=== PATIENT | male | born 1955 | race Caucasian/White ===

== ENCOUNTER 2018-02-06 11:02 | Inpatient (IN) | payer OTHER ==
[~2018-02-06] VITALS: Ht 190.5 cm; Wt 123.2 kg
[2018-02-06 11:30] LABS: ABSOLUTE BASOPHIL COUNT 0 /CUMM (0.0-0.2); ABSOLUTE EOSINOPHIL COUNT 0.6 /CUMM (0.0-0.7); ABSOLUTE GRANULOCYTE CT 7.8 /CUMM (1.4-6.5); ABSOLUTE LYMPH COUNT 1.9 /CUMM (1.2-3.4); ABSOLUTE MONOCYTE COUNT 0.8 /CUMM (0.10-0.60); BASOPHIL % 0.4 % (0.0-2.0); EOSINOPHIL % 5.6 % (0-5); GRANULOCYTE % 70.3 % (42.2-75.2); HEMATOCRIT 31.5 % (42-52); MEAN CORPUSCULAR HGB 28.4 PG (27.0-31.0); MEAN CORPUSCULAR HGB CONC 34.1 G/DL (33.0-37.0); MEAN CORPUSCULAR VOLUME 83.4 FL (80.0-94.0); MEAN PLATELET VOLUME 6.9 FL (7.4-10.4); PLATELET COUNT 599 /CUMM (130-400); RBC DISTRIBUTION WIDTH 14.1 % (11.5-14.5); RED BLOOD CELL CT 3.78 /CUMM (4.70-6.10); WHITE BLOOD CELL COUNT 11.1 /CUMM (4.8-10.8)
--- NOTE | 2018-02-06 16:18 | ED DYSPNEA/ASTHMA COMPLAINT ---
History of Present Illness General Chief Complaint: Dyspnea (COPD, CHF, Other) Stated Complaint: ABNORMAL XRAY Source: patient Exam Limitations: no limitations Vital Signs & Intake/Output Vital Signs & Intake/Output Vital Signs Date Time Temp Pulse Resp B/P B/P Pulse O2 O2 Flow FiO2 Mean Ox Delivery Rate 02/06 2043 98.7 88 24 132/65 95 Nasal 2.0L Cannula 02/06 1659 95 Nasal 2.0L Cannula 02/06 1551 99.4 104 20 167/81 95 Room Air 02/06 1129 99.9 86 20 171/79 94 Room Air Allergies Coded Allergies: No Known Allergies (02/06/18) Triage Note: 62 YEAR OLD MALE SENT TO ER BY PMD FOR ABNORMAL CXR, STATES THAT HE WAS TOLD THAT THERE IS A MEASS. PT HAS HAD A COUGH FOR THE PAST 2 WEEKS PRODUCTIVE OF SPUTUM TINGED WITH BROWN/RED BLOOD. COMPLAINS OF BILATERAL RIB PAIN FROM COUGHING Triage Nurses Notes Reviewed? yes Onset: Abrupt Duration: week(s): (3), constant, continues in ED, getting worse Timing: single episode today Severity: moderate, severe Activities at Onset: none Prior Episodes/Possible Cause: occasional episodes Modifying Factors: Worsens With: movement. Associated Symptoms: cough, chest pain, wheezing HPI: 62-year-old male past medical history of hypertension, hyperlipidemia, sleep apnea presents for evaluation of shortness of breath cough and chest pain. Patient states that symptoms have been ongoing for the past 3 weeks and getting worse. He is a former smoker and has a history of recurrent bronchitis. He states that the cough was initially productive of clear sputum but is now coughing up blood-streaked and purple sputum. He denies fever but does report sweats at night. No abdominal pain or weight loss. He does report pain in his bilateral ribs that is worse with coughing. No nausea vomiting dizziness or lightheadedness. He went to his primary care doctor yesterday and had a chest x -ray which showed a possible mass. (Herb Francois) Reconcile Medications Acetaminophen 500 MG TABLET 2 TAB PO Q6H PAIN (Reported) Amlodipine Besylate 5 MG TABLET 1 TAB PO DAILY BP (Reported) Amoxicillin/Clavulanate Potass (Amox-Clav 875-125 MG Tablet) 875 MG-125 MG TABLET 1 TAB PO BID abx (Reported) Aspirin (Ecotrin*) 81 MG TABLET.DR 1 TAB PO DAILY HEART/BLOOD (Reported) Atorvastatin Calcium 10 MG TABLET 1 TAB PO DAILY CHOLESTEROL (Reported) Azithromycin 250 MG TABLET 1 DP PO AD ABX (Reported) 2 the first day followed by 1 for days 2-5 Codeine Phosphate/Guaifenesi (Cheratussin AC Syrup) 10 MG-100 MG/5 ML LIQUID 10 ML PO Q4H cough (Reported) Ibuprofen 600 MG TABLET 1 TAB PO Q6H PAIN/INFLAMMATION (Reported) with food Loratadine (Claritin) 10 MG CAPSULE 1 CAP PO DAILY ALLERGIES (Reported) Multiple Vitamin (Multivitamins) 1 EACH TABLET 1 TAB PO DAILY SUPPLEMENT ( Reported) Ranitidine HCl (Acid Song Lyricist) 150 MG TABLET 1 TAB PO DAILY GI (Reported) Valsartan (Diovan) 160 MG TABLET 1 TAB PO DAILY BP (Reported) (Chong DIOR,Sarmad De Anda) Past History Travel History Traveled to [place] past 21 day No Medical History Any Pertinent Medical History? see below for history Neurological: NONE EENT: NONE Cardiovascular: hypertension, hyperlipidemia Gastrointestinal: NONE Hepatic: NONE Renal: NONE Psychiatric: NONE Blood Disorders: NONE Cancer(s): NONE Surgical History Surgical History: unobtainable Psychosocial History What is your primary language Grenadian Tobacco Use: Never used ETOH Use: denies use Illicit Drug Use: denies illicit drug use Family History Hx Contributory? No (Herb Francois) Review of Systems Review of Systems Constitutional: Reports: diaphoresis. EENTM: Reports: no symptoms. Respiratory: Reports: see HPI, cough, hemoptysis, short of breath, sputum production, wheezing. Cardiovascular: Reports: see HPI, chest pain. GI: Reports: no symptoms. Genitourinary: Reports: no symptoms. Musculoskeletal: Reports: no symptoms. Skin: Reports: no symptoms. Neurological/Psychological: Reports: no symptoms. Hematologic/Endocrine: Reports: no symptoms. Immunologic/Allergic: Reports: no symptoms. All Other Systems: Reviewed and Negative (Herb Francois) Physical Exam Physical Exam General Appearance: well developed/nourished, no apparent distress, alert, awake Head: atraumatic, normal appearance Eyes: Bilateral: normal appearance, PERRL, EOMI. Ears, Nose, Throat: normal pharynx, normal ENT inspection, hearing grossly normal Neck: normal inspection, supple, full range of motion Respiratory: CHEST WALL TENDERNESS TO PALPATION OVER THE STERNUM LEFT AND RIGHT CHEST. nO BRUISING SWELLING OR ABRASIONS Cardiovascular: regular rate/rhythm, normal peripheral pulses Peripheral Pulses: 2+ radial (R), 2+ radial (L) Gastrointestinal: soft, non-tender Extremities: normal range of motion, MILD BILATERAL LOWER EXTREMITY EDEMA Neurologic/Psych: no motor/sensory deficits, awake, alert, oriented x 3 Skin: intact, normal color, warm/dry Lymphatic: no anterior cervical gabby Core Measures ACS in differential dx? No CVA/TIA Diagnosis No Sepsis Present: No Sepsis Focused Exam Completed? No (Arash DELEON,Herb) Progress Differential Diagnosis: asthma, AMI, bronchitis, costochondritis, CHF, COPD, musculoskeletal pain, pulmonary embolism, pneumonia, pneumothorax, unstable angina, LUNG CANCER Plan of Care: Orders Procedure Date/time Status Nothing by Mouth 02/07 B Active LACTIC ACID 02/06 2219 Active Patient Data 02/06 2029 Active Saline Lock 02/06 2025 Active Misc Message 02/06 2025 Active ED Holding Orders 02/06 2025 Active Admit to inpatient 02/06 2025 Active Vital Signs 02/06 2025 Active Code Status 02/06 2025 Active LACTIC ACID 02/06 1919 Complete Add-on Test (ER Only) 02/06 1846 Active BLOOD CULTURE 02/06 184 Active Intake & Output 02/06 1613 Active PARTIAL THROMBOPLASTIN TIME 02/06 1118 Complete PROTHROMBIN TIME 02/06 1118 Complete TROPONIN LEVEL 02/06 1106 Complete D-DIMER 02/06 1106 Complete COMPREHENSIVE METABOLIC PANEL 02/06 1106 Complete CBC WITHOUT DIFFERENTIAL 02/06 1106 Complete EKG 02/06 1104 Active Current Medications Sig/Jonel Start time Last Medication Dose Stop Time Status Admin Acetaminophen 1,000 MG ONCE ONE 02/06 194 CAN (Ofirmev) 02/06 1959 N/A 1 UNIT (No Carrier) Laboratory Tests 02/06/18 1923: Lactic Acid 0.7 02/06/18 1118: Anion Gap 12, Estimated GFR > 60, BUN/Creatinine Ratio 21.4, Glucose 108 H, Calcium 8.6, Total Bilirubin 0.5, AST 158 H, ALT 177 H, Alkaline Phosphatase 301 H, Troponin I < 0.01, Total Protein 6.5, Albumin 3.2 L, Globulin 3.3, Albumin/Globulin Ratio 1.0 L, PT 15.4 H, INR 1.41 H, APTT 35, D-Dimer High Sensitivty 3114 H, CBC w Diff NO MAN DIFF REQ, RBC 3.78 L, MCV 83.4, MCH 28.4, MCHC 34.1, RDW 14.1, MPV 6.9 L, Gran % 70.3, Lymphocytes % 16.9 L, Monocytes % 6.8, Eosinophils % 5.6 H, Basophils % 0.4, Absolute Granulocytes 7.8 H, Absolute Lymphocytes 1.9, Absolute Monocytes 0.8 H, Absolute Eosinophils 0.6, Absolute Basophils 0 Microbiology 02/06 1923 BLOOD: Blood Culture - RECD 02/06 1846 BLOOD: Blood Culture - ORD Patient seen and evaluated. He is here with cough congestion shortness of breath and rib pain. Symptoms have been getting worse over the past 3 weeks. He also reports blood streaked sputum. He is a former smoker. He's never been diagnosed with COPD. An outpatient x-ray that suggested infiltrate versus mass. He arrives with oxygen saturation of 90-91 on room air. He was placed on 2 L nasal cannula. He has rhonchi bilaterally DuoNeb ordered. Labs EKG CTA ordered. D-dimer is significantly elevated. Suspect patient may have a malignancy. CTA of the chest was a limited study. Unable to definitively rule out PE. Ultrasound bilateral lower extremities was negative for DVT. Spoke with Dr. Mckeon who does not feel the patient needs to be heparinized at this time. He recommends admission for IV antibiotics malignancy workup. IV Solu-Medrol IV ceftriaxone ordered. Case discussed with Dr. Schwarz he agrees. Diagnostic Imaging: Viewed by Me: CT Scan. Discussed w/RAD: CT Scan. Radiology Impression: PATIENT: SANDRA POLANCO PRESENT AGE: 62 PATIENT ACCOUNT NO: [id number] : 55 LOCATION: [facility] ORDERING PHYSICIAN: Gage DELEON SERVICE DATE: 02/06/18 EXAM TYPE: CAT - CTA CHEST-PULMONARY EMBOLISM EXAMINATION: CT ANGIOGRAM OF THE CHEST WITH AND WITHOUT CONTRAST (CT PULMONARY ANGIOGRAM FOR PE) CLINICAL INFORMATION: Reason for Study:
Presumptive Dx: SOB, COUGH, MASS ON CT, ELEVATED DIMER
Signs Symptoms: R/O MALIGNANCY AND PE
COMPARISON: None TECHNIQUE: Prior to contrast administration, noncontrast localization images were obtained. Subsequently, multidetector volumetric imaging was performed from the thoracic inlet to below the diaphragms following the administration of 80 mL Omnipaque 350 intravenous contrast. No contrast reaction reported. Sagittal, coronal, and MIP oblique sagittal reformatted images were obtained on the CT workstation, uploaded to PACS, and reviewed. Total exam dose-length product 537 mGy-cm. FINDINGS: QUALITY OF STUDY/CONTRAST BOLUS: Limited PULMONARY ARTERIES: No gross central pulmonary emboli. Segmental and subsegmental pulmonary arteries difficult to actually exclude although no definite embolism is seen. THORACIC AORTA: No aneurysm or dissection. LUNG: Extensive peripherally based consolidations at both bases laterally. There is volume loss within the right lower lobe and middle lobe elevation right hemidiaphragm. Small amount of subpulmonic pleural fluid bilaterally. No discrete nodules or masses. PLEURA: As above MEDIASTINUM: Mildly enlarged mediastinal lymph nodes throughout the mediastinum. Largest subcarinal location measuring up to 18 mm. Mild bilateral hilar lymphadenopathy. No evidence of septal bowing or right heart strain. CHEST WALL/AXILLA: No axillary or internal mammary lymphadenopathy. OSSEOUS STRUCTURES : No acute or suspicious osseous abnormality. UPPER ABDOMEN: Changes of diffuse hepatic steatosis and hepatomegaly partially imaged. No reflux of contrast into the hepatic veins to suggest elevated right heart pressures. IMPRESSION: 1. Very limited exam. No gross central pulmonary emboli. Distal emboli not excluded. 2. Relatively peripheral pleural-based parenchymal abnormality is of uncertain significance. Diagnostic considerations include infectious inflammatory conditions. Pulmonary infarcts not excluded as well as tumor including entities such as lymphoma. There is significant mediastinal lymphadenopathy which appears pathologic. If further imaging is desired, recommend PET/CT. Pulmonary medicine consultation recommended. No previous CT scans. VTE: indeterminate DICTATED BY: Chad Roche MD DATE/TIME DICTATED:02/06/181752 SECRETARY OFFICE CLERK:ZENOBIA DATE /TIME TRANSCRIBED:02/06/181752 CONFIDENTIAL, DO NOT COPY WITHOUT APPROPRIATE AUTHORIZATION. <Electronically signed in Other Vendor System> SIGNED BY: Chad Roche MD 02/06/18 0509, PATIENT: SANDRA POLANCO PRESENT AGE: 62 PATIENT ACCOUNT NO: [id number] : 55 LOCATION: [facility] ORDERING PHYSICIAN: Herb DELEON SERVICE DATE: 02/06/18 EXAM TYPE: US - US-EXT BILAT VENOUS DOPPLER EXAMINATION: US TRIPLEX OF LOWER EXTREMITIES, BILATERAL CLINICAL INFORMATION: Swelling COMPARISON: None TECHNIQUE: Color-flow triplex imaging with spectral analysis and compression Doppler were performed on the lower extremities. FINDINGS: Respiratory variation, normal compression and augmented flow are noted throughout the lower extremities. The visualized common femoral vein, superficial femoral vein, profunda femoral vein, popliteal vein and midcalf peroneal and posterior tibial venous segments show no evidence of deep venous thrombosis. There is no Vasquez's cyst. IMPRESSION: No evidence of deep venous thrombosis involving the bilateral lower extremities. DICTATED BY: Chad Roche MD DATE/TIME DICTATED:02/06/181913 SECRETARY OFFICE CLERK:ZENOBIA DATE /TIME TRANSCRIBED:02/06/181913 CONFIDENTIAL, DO NOT COPY WITHOUT APPROPRIATE AUTHORIZATION. <Electronically signed in Other Vendor System> SIGNED BY: Chad Roche MD 02/06/181917 Initial ED EKG: normal sinus rhythm, borderline T-wave flattening in leads 3 and aVF compared to previous (Herb Franocis) Departure Departure Disposition: STILL A PATIENT Condition: Stable Referrals: Arben DIOR,Kiran Angeles (PCP/Family) Departure Forms: Customer Survey General Discharge Information Admission Note Spoke With: Zeeshan Kang MD Documentation of Exam: Documentation of any treatments & extenuating circumstances including Concerns Regarding Discharge (functional status, medication knowledge or non-compliance, living conditions, etc.) that warrant an admission rather than observation: [ Serial labs, pulmonology consult, IV antibiotics, IV fluids, pulmonology consult , IV steroids, DuoNeb, malignancy workup] (Herb Francois) Departure Clinical Impression Primary Impression: Hemoptysis Secondary Impressions: Dyspnea, Lymphadenopathy PA/CUSTOMER ADVISOR Co-Sign Statement Statement: ED Attending supervision documentation- [X] I saw and evaluated the patient. I have also reviewed all the pertinent lab results and diagnostic results. I agree with the findings and the plan of care as documented in the PA's/CUSTOMER ADVISOR's documentation. 02/06/18, 20:15... Pt comfortable but with rhonchi on exam, hypoxic, requiring 02 .... ct scan concerning for malignancy, possibly PE.... discussed with pulm who suggests defering heparin, pursuing malignancy... also give solumedrol/abx for superimposed infection. [] I have reviewed the ED Record and agree with the PA's/CUSTOMER ADVISOR's documentation. [] Additions or exceptions (if any) to the PAs/CUSTOMER ADVISOR's note and plan are summarized below: [] (Chong DIOR,Sarmad De Anda) Critical Care Note Critical Care Note Critical Care Time: non-applicable (Arash DELEON,Herb)
--- NOTE | 2018-02-06 18:28 | CT SCAN REPORT ---
EXAMINATION: CT ANGIOGRAM OF THE CHEST WITH AND WITHOUT CONTRAST (CT PULMONARY ANGIOGRAM FOR PE) CLINICAL INFORMATION: Reason for Study:
Presumptive Dx: SOB, COUGH, MASS ON CT, ELEVATED DIMER
Signs Symptoms: R/O MALIGNANCY AND PE
COMPARISON: None TECHNIQUE: Prior to contrast administration, noncontrast localization images were obtained. Subsequently, multidetector volumetric imaging was performed from the thoracic inlet to below the diaphragms following the administration of 80 mL Omnipaque 350 intravenous contrast. No contrast reaction reported. Sagittal, coronal, and MIP oblique sagittal reformatted images were obtained on the CT workstation, uploaded to PACS, and reviewed. Total exam dose-length product 537 mGy-cm. FINDINGS: QUALITY OF STUDY/CONTRAST BOLUS: Limited PULMONARY ARTERIES: No gross central pulmonary emboli. Segmental and subsegmental pulmonary arteries difficult to actually exclude although no definite embolism is seen. THORACIC AORTA: No aneurysm or dissection. LUNG: Extensive peripherally based consolidations at both bases laterally. There is volume loss within the right lower lobe and middle lobe elevation right hemidiaphragm. Small amount of subpulmonic pleural fluid bilaterally. No discrete nodules or masses. PLEURA: As above MEDIASTINUM: Mildly enlarged mediastinal lymph nodes throughout the mediastinum. Largest subcarinal location measuring up to 18 mm. Mild bilateral hilar lymphadenopathy. No evidence of septal bowing or right heart strain. CHEST WALL/AXILLA: No axillary or internal mammary lymphadenopathy. OSSEOUS STRUCTURES: No acute or suspicious osseous abnormality. UPPER ABDOMEN: Changes of diffuse hepatic steatosis and hepatomegaly partially imaged. No reflux of contrast into the hepatic veins to suggest elevated right heart pressures. IMPRESSION: 1. Very limited exam. No gross central pulmonary emboli. Distal emboli not excluded. 2. Relatively peripheral pleural-based parenchymal abnormality is of uncertain significance. Diagnostic considerations include infectious inflammatory conditions. Pulmonary infarcts not excluded as well as tumor including entities such as lymphoma. There is significant mediastinal lymphadenopathy which appears pathologic. If further imaging is desired, recommend PET/CT. Pulmonary medicine consultation recommended. No previous CT scans. VTE: indeterminate
[2018-02-06 19:01] LABS: PT 15.4 SEC (9.4-12.5); PTT 35 SEC (25-37)
--- NOTE | 2018-02-06 19:18 | ULTRASOUND REPORT ---
EXAMINATION: US TRIPLEX OF LOWER EXTREMITIES, BILATERAL CLINICAL INFORMATION: Swelling COMPARISON: None TECHNIQUE: Color-flow triplex imaging with spectral analysis and compression Doppler were performed on the lower extremities. FINDINGS: Respiratory variation, normal compression and augmented flow are noted throughout the lower extremities. The visualized common femoral vein, superficial femoral vein, profunda femoral vein, popliteal vein and midcalf peroneal and posterior tibial venous segments show no evidence of deep venous thrombosis. There is no Vasquez's cyst. IMPRESSION: No evidence of deep venous thrombosis involving the bilateral lower extremities.
[2018-02-06] MEDS ORDERED: ATORVASTATIN CA10 M1 PO (20:33)
[2018-02-06] MEDS ORDERED: CLARITIN10 M3 PO (20:34)
[2018-02-06] MEDS ORDERED: DIOVAN160 MG PO (20:34)
[2018-02-06] MEDS ORDERED: AMLODIPINE BESYL5 M1 PO (20:34)
[2018-02-06] MEDS ORDERED: MULTIVITAMINS1 EAC9 PO (20:34)
[2018-02-06] MEDS ORDERED: ASPIRIN EC81 M1 PO (20:35)
[2018-02-06] MEDS ORDERED: IBUPROFEN600 M1 PO (20:35)
[2018-02-06] MEDS ORDERED: ACID REDUCER150 MG PO (20:35)
[2018-02-06] MEDS ORDERED: CHERATUSSIN AC118 M1 PO (20:36)
[2018-02-06] MEDS ORDERED: ACETAMINOPHEN500 M4 PO (20:36)
[2018-02-06] MEDS ORDERED: AZITHROMYCIN250 M1 PO (20:36)
[2018-02-06] MEDS ORDERED: AMOX-CLAV 875-1 EACH PO (20:37)
--- NOTE | 2018-02-06 21:01 | Cons- Pulmonary ---
General Information and HPI Consulting Request Date of Consult: 02/06/18 Requested By: ed Exam Limitations: no limitations History of Present Illness: 62-year-old male past medical history of hypertension, hyperlipidemia, sleep apnea presents for evaluation of shortness of breath cough and chest pain. Patient states that symptoms have been ongoing for the past 3 weeks and getting worse. He is a former smoker and has a history of recurrent bronchitis. He states that the cough was initially productive of clear sputum but is now coughing up blood-streaked and purple sputum. He denies fever but does report sweats at night. No abdominal pain or weight loss. He does report pain in his bilateral ribs that is worse with coughing. No nausea vomiting dizziness or lightheadedness. He went to his primary care doctor yesterday and had a chest x -ray which showed a possible mass. He does say that he smoked about 10-15 years total quit more than 25 years ago. He is not too compliant with his CPAP.. He has dogs and cats and a bird at home. He has had loss of appetite in the recent past, dry cough with significant coughing he has seen some blood tinged sputum. No recent travel, no rash, he does have appetite issues, mild dyspepsia in the past, he has history of tubulovillous adenoma with recent colonoscopy last year did not reveal any premalignant polyps. His had an EGD as well. No other symptoms. Review of symptoms otherwise unremarkable. Allergies/Medications Allergies: Coded Allergies: No Known Allergies (02/06/18) Home Med List: Acetaminophen 500 MG TABLET 2 TAB PO Q6H PAIN (Reported) Amlodipine Besylate 5 MG TABLET 1 TAB PO DAILY BP (Reported) Amoxicillin/Clavulanate Potass (Amox-Clav 875-125 MG Tablet) 875 MG-125 MG TABLET 1 TAB PO BID abx (Reported) Aspirin (Ecotrin*) 81 MG TABLET.DR 1 TAB PO DAILY HEART/BLOOD (Reported) Atorvastatin Calcium 10 MG TABLET 1 TAB PO DAILY CHOLESTEROL (Reported) Azithromycin 250 MG TABLET 1 DP PO AD ABX (Reported) 2 the first day followed by 1 for days 2-5 Codeine Phosphate/Guaifenesi (Cheratussin AC Syrup) 10 MG-100 MG/5 ML LIQUID 10 ML PO Q4H cough (Reported) Ibuprofen 600 MG TABLET 1 TAB PO Q6H PAIN/INFLAMMATION (Reported) with food Loratadine (Claritin) 10 MG CAPSULE 1 CAP PO DAILY ALLERGIES (Reported) Multiple Vitamin (Multivitamins) 1 EACH TABLET 1 TAB PO DAILY SUPPLEMENT ( Reported) Ranitidine HCl (Acid Forecast Analyst) 150 MG TABLET 1 TAB PO DAILY GI (Reported) Valsartan (Diovan) 160 MG TABLET 1 TAB PO DAILY BP (Reported) Review of Systems Review of Systems Constitutional: Reports: see HPI. Comments Reports: diaphoresis. EENTM: Reports: no symptoms. Respiratory: Reports: see HPI, cough, hemoptysis, short of breath, sputum production, wheezing. Cardiovascular: Reports: see HPI, chest pain. GI: Reports: no symptoms. Genitourinary: Reports: no symptoms. Musculoskeletal: Reports: no symptoms. Skin: Reports: no symptoms. Neurological/Psychological: Reports: no symptoms. Hematologic/Endocrine: Reports: no symptoms. Immunologic/Allergic: Reports: no symptoms. All Other Systems: Reviewed and Negative Past History Travel History Traveled to [place] past 21 day No Medical History Neurological: NONE EENT: NONE Cardiovascular: hypertension, hyperlipidemia Gastrointestinal: NONE Hepatic: NONE Renal: NONE Psychiatric: NONE Blood Disorders: NONE Cancer(s): NONE Surgical History Surgical History: unobtainable Psychosocial History ETOH Use: denies use Illicit Drug Use: denies illicit drug use Exam & Diagnostic Data Last 24 Hrs of Vital Signs/I&O Vital Signs Date Time Temp Pulse Resp B/P B/P Pulse O2 O2 Flow FiO2 Mean Ox Delivery Rate 02/06 2043 98.7 88 24 132/65 95 Nasal 2.0L Cannula 02/06 1659 95 Nasal 2.0L Cannula 02/06 1551 99.4 104 20 167/81 95 Room Air 02/06 1129 99.9 86 20 171/79 94 Room Air Intake & Output 02/06 1600 02/06 0800 02/06 0000 Intake Total Output Total Balance Patient 278 lb Weight Last 48 Hrs of Labs/Coyd: Laboratory Tests 02/06/18 1923: Lactic Acid 0.7 02/06/18 1118: Anion Gap 12, Estimated GFR > 60, BUN/Creatinine Ratio 21.4, Glucose 108 H, Calcium 8.6, Total Bilirubin 0.5, AST 158 H, ALT 177 H, Alkaline Phosphatase 301 H, Troponin I < 0.01, Total Protein 6.5, Albumin 3.2 L, Globulin 3.3, Albumin/Globulin Ratio 1.0 L, PT 15.4 H, INR 1.41 H, APTT 35, D-Dimer High Sensitivty 3114 H, CBC w Diff NO MAN DIFF REQ, RBC 3.78 L, MCV 83.4, MCH 28.4, MCHC 34.1, RDW 14.1, MPV 6.9 L, Gran % 70.3, Lymphocytes % 16.9 L, Monocytes % 6.8, Eosinophils % 5.6 H, Basophils % 0.4, Absolute Granulocytes 7.8 H, Absolute Lymphocytes 1.9, Absolute Monocytes 0.8 H, Absolute Eosinophils 0.6, Absolute Basophils 0 Assessment/Plan Impression/Plan: General Appearance: well developed/nourished, no apparent distress, alert, awake Head: atraumatic, normal appearance Eyes: Bilateral: normal appearance, PERRL, EOMI. Ears, Nose, Throat: normal pharynx, normal ENT inspection, hearing grossly normal Neck: normal inspection, supple, full range of motion Respiratory: CHEST WALL TENDERNESS TO PALPATION OVER THE STERNUM LEFT AND RIGHT CHEST. nO BRUISING SWELLING OR ABRASIONS Cardiovascular: regular rate/rhythm, normal peripheral pulses Peripheral Pulses: 2+ radial (R), 2+ radial (L) Gastrointestinal: soft, non-tender Extremities: normal range of motion, MILD BILATERAL LOWER EXTREMITY EDEMA Neurologic/Psych: no motor/sensory deficits, awake, alert, oriented x 3 Skin: intact, normal color, warm/dry Lymphatic: no anterior cervical gabby IMPRESSION: 1. Very limited exam. No gross central pulmonary emboli. Distal emboli not excluded. 2. Relatively peripheral pleural-based parenchymal abnormality is of uncertain significance. Diagnostic considerations include infectious inflammatory conditions. Pulmonary infarcts not excluded as well as tumor including entities such as lymphoma. There is significant mediastinal lymphadenopathy which appears pathologic. If further imaging is desired, recommend PET/CT. Pulmonary medicine consultation recommended. No previous CT scans. VTE: indeterminate DICTATED BY: Chad Roche MD DATE/TIME DICTATED:02/06/181752 No DVT in the lower extremity Doppler SIGNIFICANT DATA CT scan and others reviewed Blood work unremarkable albumin low his alkaline phosphatase is elevated to 301 AST ALT elevated bilirubin normal his blood work in September was unremarkable other than slightly elevated anion gap's last PSA was normal His white count is 11.1 with platelets of 599 with no significant left shift however he has 5.6% eosinophilia D-dimer is significantly elevated INR is 1.41 urine analysis pending IMPRESSION This is a gentleman with history of hypertension, obstructive sleep apnea not on CPAP regularly, hyperlipidemia, previous history of allergic rhinitis, 15-pack- year smoker quit more than 25 years ago has * Significant cough which is dry in the beginning now with slight blood-tinged sputum with excessive coughing with no significant fever bilateral pulmonary masslike opacity 7 infiltrates with volume loss with mild lymphadenopathy in the mediastinum with no significant large pulmonary embolism noted. Differential diagnoses include atypical pneumonia including psittacosis as he has birds versus metastatic malignancy versus organizing pneumonia. Full workup needs to be done. Patient has had history of tubulovillous adenoma in the past but no significant colonoscopy last year, normal PSA, no other risks for malignancy. * Mild eosinophilia dry cough peripheral infiltrates rule out atypical infection including psittacosis. No significant exposure to any endemic fungi in the recent past unlikely this is any other organism * Unlikely pulmonary embolism as he has no DVT and no large PE and no evidence suggestive of right heart strain * Altered LFTs, elevated alkaline phosphatase rule out any other pathology in the abdomen which needs workup with CT scan of the abdomen and pelvis with IV and by mouth contrast in the future once his creatinine is normal in the next 24 hours as he just received contrast. RECOMMENDATION Panculture Sputum culture Chlamydia psittacosis panel Start intravenous ceftriaxone, by mouth doxycycline Cough controlled by codeine cough syrup, ipratropium nebulizer therapy around the clock 3 times a day, start gabapentin 300 at bedtime if he can tolerate it Low-dose steroid inhaler Check IgE level Check urinary antigens We'll consider CT scan guided needle biopsy if he does not have a good response with doxycycline Check HIV Consult Acknowledgment - Thank you for your consult request.
--- NOTE | 2018-02-06 21:28 | History & Physical ---
Patrice DIOR,[facility] 02/06/18 2128: General Information and HPI MD Statement: I have seen and personally examined SANDRA NASCIMENTO and documented this H&P. The patient is a 62 year old M who presented with a patient stated chief complaint of [3 weeks of cough and hemoptysis]. Source of Information: patient, family, old records Exam Limitations: no limitations History of Present Illness: 62-year-old male with a past medical history of hypertension, hyperlipidemia, recurrent bronchitis, obstructive sleep apnea who presented for 3 weeks of shortness breath, cough and recently hemoptysis. The patient's symptoms started 3 weeks ago as a dry cough that progressed over time, 5 days ago he started to bring up frothy sputum covered with blood. Recently he started to complain left lower chest pain that radiated to the right lower chest. The pain is worsened with cough and touch. He has been taking Tylenol 1000 mg 4 time a days for the past week. He also reported intermittent night sweats. He denies substernal chest pain, palpitation, orthopnea, fever, chills, or weight loss. The patient went to visit his PCP couple of days ago, x -ray was order and he was started on Augmentin and azithromycin. His x-ray showed a mass for which she was sent to the ED .He has a 10 year history of smoking but quit about 25 years ago. At home he has a bird that he poked 10 years ago. He denies recent travel or sick contact. Allergies/Medications Allergies: Coded Allergies: No Known Allergies (02/06/18) Home Med list Acetaminophen 500 MG TABLET 2 TAB PO Q6H PAIN (Reported) Amlodipine Besylate 5 MG TABLET 1 TAB PO DAILY BP (Reported) Amoxicillin/Clavulanate Potass (Amox-Clav 875-125 MG Tablet) 875 MG-125 MG TABLET 1 TAB PO BID abx (Reported) Aspirin (Ecotrin*) 81 MG TABLET.DR 1 TAB PO DAILY HEART/BLOOD (Reported) Atorvastatin Calcium 10 MG TABLET 1 TAB PO DAILY CHOLESTEROL (Reported) Azithromycin 250 MG TABLET 1 DP PO AD ABX (Reported) 2 the first day followed by 1 for days 2-5 Codeine Phosphate/Guaifenesi (Cheratussin AC Syrup) 10 MG-100 MG/5 ML LIQUID 10 ML PO Q4H cough (Reported) Ibuprofen 600 MG TABLET 1 TAB PO Q6H PAIN/INFLAMMATION (Reported) with food Loratadine (Claritin) 10 MG CAPSULE 1 CAP PO DAILY ALLERGIES (Reported) Multiple Vitamin (Multivitamins) 1 EACH TABLET 1 TAB PO DAILY SUPPLEMENT ( Reported) Ranitidine HCl (Acid Guide Dog Instructor) 150 MG TABLET 1 TAB PO DAILY GI (Reported) Valsartan (Diovan) 160 MG TABLET 1 TAB PO DAILY BP (Reported) Past History Travel History Traveled to [place] past 21 day No Medical History Neurological: NONE EENT: NONE Cardiovascular: hypertension, hyperlipidemia Gastrointestinal: NONE Hepatic: NONE Renal: NONE Psychiatric: NONE Blood Disorders: NONE Cancer(s): NONE Surgical History Surgical History: unobtainable Past Family/Social History Psychosocial History ETOH Use: denies use Illicit Drug Use: denies illicit drug use Review of Systems Review of Systems Constitutional: Reports: diaphoresis. Denies: chills, fever, weakness, unexplained weight loss. Cardiovascular: Reports: chest pain. Denies: edema, orthopena, palpitations, peripheral edema, syncope. Respiratory: Reports: cough, hemoptysis, short of breath, sputum production. Denies: orthopnea, stridor, wheezing. GI: Denies: constipation, diarrhea, nausea, vomiting. Genitourinary: Denies: dysuria, hematuria. Musculoskeletal: Reports: muscle pain (LL chest). Denies: back pain, joint pain. Skin: Denies: rash. Exam & Diagnostic Data Last 24 Hrs of Vital Signs/I&O Vital Signs Date Time Temp Pulse Resp B/P B/P Pulse O2 O2 Flow FiO2 Mean Ox Delivery Rate 02/06 2204 100.0 90 22 167/76 95 Nasal Cannula 02/06 2043 98.7 88 24 132/65 95 Nasal 2.0L Cannula 02/06 1659 95 Nasal 2.0L Cannula 02/06 1551 99.4 104 20 167/81 95 Room Air 02/06 1129 99.9 86 20 171/79 94 Room Air Intake & Output 02/06 1600 02/06 0800 02/06 0000 Intake Total Output Total Balance Patient 126.099 kg Weight Physical Exam General Appearance Alert, Oriented X3, Cooperative, Mild Distress Skin No Rashes HEENT Atraumatic, PERRLA, EOMI, Mucous Membr. moist/pink Neck No JVD Cardiovascular Regular Rate, Normal S1, Normal S2, No Murmurs Lungs Clear to Auscultation, Normal Air Movement Abdomen Soft, No Tenderness Neurological Normal Speech Extremities No Clubbing, No Cyanosis, No Edema Last 24 Hrs of Labs/Cody: Laboratory Tests 02/06/181922: Lactic Acid 0.7 02/06/18 1118: Anion Gap 12, Estimated GFR > 60, BUN/Creatinine Ratio 21.4, Glucose 108 H, Calcium 8.6, Total Bilirubin 0.5, AST 158 H, ALT 177 H, Alkaline Phosphatase 301 H, Troponin I < 0.01, Total Protein 6.5, Albumin 3.2 L, Globulin 3.3, Albumin/Globulin Ratio 1.0 L, PT 15.4 H, INR 1.41 H, APTT 35, D-Dimer High Sensitivty 3114 H, CBC w Diff NO MAN DIFF REQ, RBC 3.78 L, MCV 83.4, MCH 28.4, MCHC 34.1, RDW 14.1, MPV 6.9 L, Gran % 70.3, Lymphocytes % 16.9 L, Monocytes % 6.8, Eosinophils % 5.6 H, Basophils % 0.4, Absolute Granulocytes 7.8 H, Absolute Lymphocytes 1.9, Absolute Monocytes 0.8 H, Absolute Eosinophils 0.6, Absolute Basophils 0, Ref Lab Test Result Pending Microbiology 02/06 2153 URINE ROUT: Legionella Antigen - ORD 02/06 2153 URINE ROUT: Streptococcus pneumoniae Antigen (M - ORD 02/07 2132 LOWER RESP: Respiratory Culture - ORD 02/07 2132 LOWER RESP: Gram Stain - ORD 02/06 1923 BLOOD: Blood Culture - RECD 02/06 184 BLOOD: Blood Culture - ORD Assessment/Plan Assessment: This is a 62-year-old male with a past medical history of hypertension, hyperlipidemia, obstructive sleep apnea, and recurrent bronchitis, who presented because of progressive cough that started 3 weeks ago and is getting worse. 5 days ago he developed hemoptysis. He has a 10 year history of smoking but he quit 25 years ago. On imaging he had bilateral pulmonary mass with infiltration and mediastinal pathological lymphadenopathy. CTA did not show any PE. He is also complaining of bilateral lower chest pain that's most likely secondary to the cough, he's been taking Tylenol 1000 mg every 6 hours for the past week which can possibly explain his transaminitis. As per pulmonology notes the differential could be metastases check malignancy versus organized pneumonia versus chlamydia psittacosis pneumonia. #Cough with hemoptysis and lung mass * We will admit the patient to general medicine floor * We will control cough symptom with Robitussin and ipratropium nebulizer * We will start patient on low-dose steroid inhaler * We will send for chlamydia Psittacosis IgM, IgG, and IgA. * Sputum culture * Urine Legionella and strep * HIV testing * We will control pain with OxyContin(avoid Tylenol given transaminitis, avoid NSAIDs given recent contrast) * We will start patient on IV ceftriaxone and oral doxycycline * If no improvement within the next 24-48 hours, we will order abdominal CT with contrast looking for possible malignancy, possibly lung biopsy. * Pulmonology recommendation are highly appreciated. #For other chronic conditions including hypertension, hyperlipidemia, EMRE * We will continue home medication * We will order CPAP at night -Regular diet -DVT with ALPS and SC hep -FC As Ranked By This Provider Problem List: 1. Dyspnea 2. Hemoptysis 3. Lymphadenopathy Core Measures/Misc (05/25) Acute Coronary Syndrome ACS Diagnosis: No Congestive Heart Failure Congestive Heart Failure Diagnosis No Cerebrovascular Accident CVA/TIA Diagnosis: No VTE (View Protocol) VTE Risk Factors Acute Medical Illness No Mechanical VTE Prophylaxis d/t N/A MechProphylax Ordered No VTE Pharm Prophylaxis d/t NA PharmProphylax ordered Sepsis (View protocol) Sepsis Present: No If YES complete Sepsis Event Note If YES complete Sepsis Event Note Zeeshan Kang MD 02/07/18 0219: Core Measures/Misc (05/25) Sepsis (View protocol) If YES complete Sepsis Event Note If YES complete Sepsis Event Note Attending MD Review Statement Attending Statement Attending MD Statement: examined this patient, discuss w/resident/PA/BRICK KILN WORKER, agreed w/resident/PA/BRICK KILN WORKER, discussed with family, discussed with nursing Attending Assessment/Plan: Mr. Nascimento is a 62 y/o male with history of hypertension dyslipidemia sleep apnea, ex-smoker presents with complaints of shortness of breath cough. Patient has been having poor poor appetite for the past 2 weeks. Initially his sputum was clear but now has been having blood-streaked sputum. He he had x-ray done was primary care doctor which showed that he has a possible mass. On examination blood pressure is 132/65, heart rate of 88, afebrile, on 2 L of oxygen via nasal cannula saturating about 95% Assessment 1. 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 Normocytic anemia 3. Mild transaminitis 4. Hypertension Plan We'll treat with ceftriaxone and doxycycline. Obtain blood and sputum cultures. Antitussives, low-dose steroid inhaler. Appreciate pulmonary recommendations. After initial treatment with antibiotics if the symptoms doesn't improve he'll NEED CT guided needle biopsy. Obtain ESR and CRP. HIV nonreactive. Will need complement fixation antibody tests for diagnosis of psittacosis
[2018-02-06 22:04] VITALS: BP 167/76
[2018-02-07 06:20] VITALS: BP 134/66
--- NOTE | 2018-02-07 12:09 | PN- Pulmonary ---
Subjective HPI/Critical Care Issues: Still coughing Tmax 100 Objective Current Medications: Current Medications Sig/Jonel Start time Last Medication Dose Route Stop Time Status Admin Acetaminophen 1,000 MG ONCE ONE 02/06 1945 CAN N/A 1 UNIT IV 02/06 1959 Acetaminophen 0 .STK-MED ONE 02/06 1645 DC PO Acetaminophen 500 MG ONCE ONE 02/06 1630 DC 02/06 PO 02/06 1631 1640 Albuterol Sulfate 3 ML ONCE ONE 02/06 1645 DC 02/06 INH 02/06 1646 1646 Amlodipine Besylate 5 MG DAILY 02/07 0900 AC 02/07 PO 0955 Aspirin Buffered 81 MG DAILY 02/07 09 AC 02/07 PO 0955 Atorvastatin Calcium 10 MG DAILY 02/07 09 AC 02/07 PO 0955 Ceftriaxone Sodium 1,000 MG DAILY 02/07 09 AC 02/07 IV 0955 Ceftriaxone Sodium 0 .STK-MED ONE 02/06 2110 DC .ROUTE Ceftriaxone Sodium 1,000 MG ONCE ONE 02/06 2015 DC 02/06 IV 02/06 2016 2110 Dextrose/Sodium 1,000 ML Q20H 02/07 1015 AC 02/07 Chloride IV 1052 Doxycycline Hyclate 100 MG BID 02/06 2146 AC 02/07 PO 0955 Famotidine 20 MG DAILY 02/07 0900 AC 02/07 PO 0955 Fluticasone 2 PUF BID 02/06 2152 AC 02/07 Propionate INH 0956 Gabapentin 300 MG AT BEDTIME 02/07 2100 AC PO Guaifenesin 10 ML Q4P PRN 02/06 2200 AC 02/07 PO 0637 Guaifenesin/Codeine 10 ML ONCE ONE 02/06 2015 DC 02/06 Phosphate PO 02/06 2016 2110 Guaifenesin/Codeine 10 ML ONCE ONE 02/06 1630 DC 02/06 Phosphate PO 02/06 1631 1640 Heparin Sodium 5,000 UNIT Q8 02/06 2200 AC 02/07 (Porcine) SC 0023 Ibuprofen 0 .STK-MED ONE 02/06 1645 DC PO Ibuprofen 600 MG ONCE ONE 02/06 1630 DC 02/06 PO 02/06 1631 1640 Ipratropium [place] 2.5 ML TID 02/06 2149 AC INH Ipratropium [place] 2.5 ML ONCE ONE 02/06 1645 DC 02/06 INH 02/06 1646 1646 Losartan Potassium 50 MG DAILY 02/07 0900 AC 02/07 PO 0955 Methylprednisolone 0 .STK-MED ONE 02/06 2109 DC .ROUTE Methylprednisolone 125 MG ONCE ONE 02/06 2015 DC 02/06 IV 02/06 Oxycodone HCl 5 MG Q6 PRN 02/06 2230 AC 02/07 PO 0503 Polyethylene Glycol 17 GM DAILY 02/06 2300 AC 02/07 PO 0955 Vital Signs & I&O Last 24 Hrs of Vitals and I&O: Vital Signs Date Time Temp Pulse Resp B/P B/P Pulse O2 O2 Flow FiO2 Mean Ox Delivery Rate 02/07 0955 84 134/66 / 0955 84 134/66 02/07 0620 99.3 84 20 134/66 96 Nasal 2.0L Cannula 02/07 0555 76 95 02/07 0346 78 96 02/07 0100 96 94 02/07 0031 96 Nasal 2.0L Cannula 02/07 0000 Nasal 2.0L Cannula 02/06 2218 Nasal 2.0L Cannula 02/06 2204 100.0 90 22 167/76 95 Nasal Cannula 02/06 2043 98.7 88 24 132/65 95 Nasal 2.0L Cannula 02/06 1659 95 Nasal 2.0L Cannula 02/06 1551 99.4 104 20 167/81 95 Room Air Intake & Output 02/07 1600 02/07 0800 02/07 0000 Intake Total Output Total Balance Patient 272 lb Weight Impression/Plan Impression/Plan Impression/Plan: General Appearance: well developed/nourished, no apparent distress, alert, awake Head: atraumatic, normal appearance Eyes: Bilateral: normal appearance, PERRL, EOMI. Ears, Nose, Throat: normal pharynx, normal ENT inspection, hearing grossly normal Neck: normal inspection, supple, full range of motion Respiratory: CHEST WALL TENDERNESS TO PALPATION OVER THE STERNUM LEFT AND RIGHT CHEST. nO BRUISING SWELLING OR ABRASIONS Cardiovascular: regular rate/rhythm, normal peripheral pulses Peripheral Pulses: 2+ radial (R), 2+ radial (L) Gastrointestinal: soft, non-tender Extremities: normal range of motion, MILD BILATERAL LOWER EXTREMITY EDEMA Neurologic/Psych: no motor/sensory deficits, awake, alert, oriented x 3 Skin: intact, normal color, warm/dry Lymphatic: no anterior cervical gabby IMPRESSION: 1. Very limited exam. No gross central pulmonary emboli. Distal emboli not excluded. 2. Relatively peripheral pleural-based parenchymal abnormality is of uncertain significance. Diagnostic considerations include infectious inflammatory conditions. Pulmonary infarcts not excluded as well as tumor including entities such as lymphoma. There is significant mediastinal lymphadenopathy which appears pathologic. If further imaging is desired, recommend PET/CT. Pulmonary medicine consultation recommended. No previous CT scans. VTE: indeterminate DICTATED BY: Chad Roche MD DATE/TIME DICTATED:02/06/181752 No DVT in the lower extremity Doppler SIGNIFICANT DATA CT scan and others reviewed Blood work unremarkable albumin low his alkaline phosphatase is elevated to 301 AST ALT elevated bilirubin normal his blood work in September was unremarkable other than slightly elevated anion gap's last PSA was normal His white count is 11.1 with platelets of 599 with no significant left shift however he has 5.6% eosinophilia D-dimer is significantly elevated INR is 1.41 urine analysis pending IMPRESSION This is a gentleman with history of hypertension, obstructive sleep apnea not on CPAP regularly, hyperlipidemia, previous history of allergic rhinitis, 15-pack- year smoker quit more than 25 years ago has * Significant cough which is dry in the beginning now with slight blood-tinged sputum with excessive coughing with no significant fever bilateral pulmonary masslike opacity with volume loss with mild lymphadenopathy in the mediastinum with no significant large pulmonary embolism noted. Differential diagnoses include atypical pneumonia including psittacosis as he has birds versus metastatic malignancy versus organizing pneumonia. Full workup needs to be done. 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 * Mild eosinophilia dry cough peripheral infiltrates rule out atypical infection including psittacosis. No significant exposure to any endemic fungi in the recent past unlikely this is any other organism * Unlikely pulmonary embolism as he has no DVT and no large PE and no evidence suggestive of right heart strain * Altered LFTs, elevated alkaline phosphatase rule out any other pathology in the abdomen which needs workup RECOMMENDATION Order CRP, ESR, KAYA, ANCA panel, Hep c antibody, UA, Croglobulin, COmplement levels for now COnt abx Cough controlled by codeine cough syrup, ipratropium nebulizer therapy around the clock 3 times a day, start gabapentin 300 at bedtime if he can tolerate it Low-dose steroid inhaler Check IgE level IVf today, recheck cbc, cmp soon We'll consider CT scan guided needle biopsy if he does not have a good response with doxycycline Check HIV
--- NOTE | 2018-02-07 14:40 | PN- Housestaff ---
Suze Dos Santos 02/07/18 1440: Subjective Follow-up For: Hemoptysis with lung mass Subjective: Patient seen and examined. He states that he is feeling well. Had abdominal ultrasound today for elevated LFTs. The family wants to be updated about the ultrasound results maybe later today or tomorrow morning. Review of Systems Constitutional: Reports: see HPI. Objective Last 24 Hrs of Vital Signs/I&O Vital Signs Date Time Temp Pulse Resp B/P B/P Pulse O2 O2 Flow FiO2 Mean Ox Delivery Rate 02/07 1507 98.7 79 20 130/70 95 06/02 1418 Nasal 2.0L Cannula 02/07 0955 84 134/66 06/ 0955 84 134/66 / 0800 98 Nasal 2.0L Cannula 02/07 0620 99.3 84 20 134/66 96 Nasal 2.0L Cannula / 0555 76 95 / 0346 78 96 / 0100 96 94 / 0031 96 Nasal 2.0L Cannula 02/07 0000 Nasal 2.0L Cannula 02/06 2218 Nasal 2.0L Cannula 02/06 2204 100.0 90 22 167/76 95 Nasal Cannula 02/06 2043 98.7 88 24 132/65 95 Nasal 2.0L Cannula Intake & Output 02/07 1600 06/02 0800 / 0000 Intake Total 1000 Output Total Balance 1000 Intake, Oral 1000 Patient 123.179 kg Weight Physical Exam General Appearance: Alert, Oriented X3, Cooperative Skin: No Rashes HEENT: Atraumatic Neck: Supple Cardiovascular: Normal S1, Normal S2 Lungs: Clear to Auscultation, Normal Air Movement Abdomen: Normal Bowel Sounds, Soft, No Tenderness Extremities: No Clubbing, No Cyanosis Assessment/Plan Assessment: This is a 62-year-old male with a past medical history of hypertension, hyperlipidemia, obstructive sleep apnea, and recurrent bronchitis, who presented because of progressive cough that started 3 weeks ago and is getting worse. 5 days ago he developed hemoptysis. He has a 10 year history of smoking but he quit 25 years ago. On imaging he had bilateral pulmonary mass with infiltration and mediastinal pathological lymphadenopathy. CTA did not show any PE. He is also complaining of bilateral lower chest pain that's most likely secondary to the cough, he's been taking Tylenol 1000 mg every 6 hours for the past week which can possibly explain his transaminitis. As per pulmonology notes the differential could be metastases check malignancy versus organized pneumonia versus chlamydia psittacosis pneumonia. Persistent cough with pleural parenchymal abnormality, possible pneumonia? We'll continue ceftriaxone and doxycycline We will control cough symptom with Robitussin and ipratropium nebulizer We will start patient on low-dose steroid inhaler We will follow-up chlamydia Psittacosis IgM, IgG, and IgA, Sputum culture, Urine Legionella and strep, HIV testing Elevated LFTs and INR Locate ultrasound abdomen to evaluate for liver pathology For chronic conditions will continue home meds -Regular diet -DVT with ALPS and SC hep -FC Problem List: 1. Lymphadenopathy 2. Dyspnea Pain Ratin Pain Location: none Pain Goal: Pain 4 or less Pain Plan: tylenol prn Tomorrow's Labs & Rationales: cbc , bep Tomas,Sereneeep 02/07/18 1554: Attending MD Review Statement Attending Statement Attending MD Statement: examined this patient, discuss w/resident/PA/LEARNING DEVELOPER, agreed w/resident/PA/LEARNING DEVELOPER, reviewed EMR data (avail), discussed with nursing Attending Assessment/Plan: Mediastinal LAP with cough and sob- pt on ceftriaxone and doxycyline currently. Seen by pulmonary and appreciated their input. CT chest negative for PE. LFTs elevation and INR elevation- will get ultrasound of abdomen and will repeat his LFTs. will f/u on ultrasound results and will f/u on repeat LFTs to make sure LFts are trending down. d/w pt the care plan.
--- NOTE | 2018-02-07 14:43 | ULTRASOUND REPORT ---
EXAMINATION: US ABDOMEN COMPLETE CLINICAL INFORMATION: Elevated liver function tests.. COMPARISON: None TECHNIQUE: Real-time imaging of the abdominal viscera. FINDINGS: PANCREAS: The visualized head and body of the pancreas appear unremarkable. The distal body and tail are obscured by overlying bowel gas. ABDOMINAL AORTA: The proximal segment is normal in caliber. INFERIOR VENA CAVA: Visualized portions are normal. LIVER: The liver is diffusely enlarged in size and increased diffusely in echotexture. The echotexture is also coarsened. No focal lesion identified. GALLBLADDER: The gallbladder is mildly distended. There is no wall edema or pericholecystic fluid. There may be a small amount of layering sludge. No distinct gallstones identified. COMMON BILE DUCT: Normal in caliber measuring 0.9 cm in diameter. RIGHT KIDNEY: Normal. No hydronephrosis. No renal calculi or focal parenchymal lesions. The kidney measures 12.2 cm in maximum dimension. LEFT KIDNEY: Normal. No hydronephrosis. No renal calculi or focal parenchymal lesions. The kidney measures 13.5 cm in maximum dimension. SPLEEN: Normal. The spleen measures 10.5 cm in maximum dimension. FREE FLUID: No free fluid within the abdomen. There is a question of a small right pleural effusion. IMPRESSION: 1. Echogenic mildly enlarged liver suggesting underlying liver disease. No focal lesion identified. 2. Question small right pleural effusion, partially imaged. 3. Small amount of sludge within the gallbladder. No ultrasound findings consistent with acute cholecystitis.
[2018-02-07 15:07] VITALS: BP 130/70
[2018-02-07 23:02] VITALS: BP 160/62
[2018-02-08 06:20] VITALS: BP 140/69
--- NOTE | 2018-02-08 10:02 | PN- Pulmonary ---
Subjective HPI/Critical Care Issues: Patient seen and examined. He states that he is feeling well. Had abdominal ultrasound today for elevated LFTs. Still coughing Objective Current Medications: Current Medications Sig/Jonel Start time Last Medication Dose Route Stop Time Status Admin Albuterol Sulfate 2 PUF Q4P PRN 02/07 1430 AC INH Amlodipine Besylate 5 MG DAILY 02/07 0900 AC 02/08 PO 0952 Aspirin Buffered 81 MG DAILY 02/07 09 AC 02/08 PO 0952 Atorvastatin Calcium 10 MG DAILY 02/07 09 AC 02/08 PO 0952 Ceftriaxone Sodium 1,000 MG DAILY 02/07 09 AC 02/08 IV 0953 Dextrose/Sodium 1,000 ML Q20H 02/07 1015 DC 02/07 Chloride IV 1052 Doxycycline Hyclate 100 MG BID 02/06 2146 AC 02/08 PO 0952 Famotidine 20 MG DAILY 02/07 0900 AC 02/08 PO 0952 Fluticasone 2 PUF BID 02/06 2152 AC 02/08 Propionate INH 0954 Gabapentin 300 MG AT BEDTIME 02/07 2100 AC 02/07 PO 2059 Guaifenesin 10 ML Q4P PRN 02/06 2200 AC 02/08 PO 0441 Heparin Sodium 5,000 UNIT Q8 02/06 2200 AC 02/08 (Porcine) SC 0600 Ipratropium [place] 2.5 ML TID 02/06 2149 AC INH Losartan Potassium 50 MG DAILY 02/07 0900 AC 02/08 PO 0953 Oxycodone HCl 5 MG Q6 PRN 02/06 2230 AC 02/08 PO 0440 Polyethylene Glycol 17 GM DAILY 02/06 2300 AC 02/07 PO 0955 Vital Signs & I&O Last 24 Hrs of Vitals and I&O: Vital Signs Date Time Temp Pulse Resp B/P B/P Pulse O2 O2 Flow FiO2 Mean Ox Delivery Rate 02/08 0953 64 140/69 / 0952 64 140/69 / 0800 96 Room Air / 0620 98.2 64 18 140/69 98 CPAP / 0025 75 95 / 2302 98.5 80 20 160/62 94 Room Air 06/ 2249 95 /02 1600 Room Air / 1507 98.7 79 20 130/70 95 /02 1418 Nasal 2.0L Cannula Intake & Output 02/08 1600 02/08 0800 02/08 0000 Intake Total 100 100 Output Total 500 Balance -400 100 Intake, Oral 100 100 Output, Urine 500 Laboratory Tests 02/08 02/06 0445 2224 Immunology IgE Pending Serology HIV 1&2 Ab Western Blot (NONREACTIVE) NONREACTIVE Urines Urine Color (YEL,AMB,STR) YEL Urine Clarity (CLEAR) CLEAR Urine pH (5.0 - 8.0) 6.0 Ur Specific [place] (1.001 - 1.035) 1.015 Urine Protein (NEG,<30 MG/DL) NEG Urine Ketones (NEG) NEG Urine Nitrite (NEG) NEG Urine Bilirubin (NEG) NEG Urine Urobilinogen (0.1 - 1.0 EU/dl) 0.2 Ur Leukocyte Esterase (NEG) NEG Ur Microscopic EXAM NOT REQUIRED Urine Hemoglobin (NEG) NEG Urine Glucose (N MG/DL) NEG 02/06 02/06 02/06 2219 1923 1118 Chemistry Sodium (137 - 145 mmol/L) 141 Potassium (3.5 - 5.1 mmol/L) 4.1 Chloride (98 - 107 mmol/L) 103 Carbon Dioxide (22 - 30 mmol/L) 26 Anion Gap (5 - 16) 12 BUN (9 - 20 mg/dL) 15 Creatinine (0.7 - 1.2 mg/dL) 0.7 Estimated GFR (>60 ml/min) > 60 BUN/Creatinine Ratio (7 - 25 %) 21.4 Glucose (65 - 99 mg/dL) 108 H Lactic Acid (0.7 - 2.1 mmol/L) Cancelled 0.7 Calcium (8.4 - 10.2 mg/dL) 8.6 Total Bilirubin (0.2 - 1.3 mg/dL) 0.5 AST (17 - 59 U/L) 158 H ALT (21 - 72 U/L) 177 H Alkaline Phosphatase (< 127 U/L) 301 H Troponin I (<0.11 ng/ml) < 0.01 Total Protein (6.3 - 8.2 g/dL) 6.5 Albumin (3.5 - 5.0 g/dL) 3.2 L Globulin (1.9 - 4.2 gm/dL) 3.3 Albumin/Globulin Ratio (1.1 - 2.2 %) 1.0 L Coagulation PT (9.4 - 12.5 SEC) 15.4 H INR (0.90 - 1.17) 1.41 H APTT (25 - 37 SEC) 35 D-Dimer High Sensitivty (0 - 243 ng/ml) 3114 H Hematology CBC w Diff NO MAN DIFF REQ WBC (4.8 - 10.8 /CUMM) 11.1 H RBC (4.70 - 6.10 /CUMM) 3.78 L Hgb (14.0 - 18.0 G/DL) 10.7 L Hct (42 - 52 %) 31.5 L MCV (80.0 - 94.0 FL) 83.4 MCH (27.0 - 31.0 PG) 28.4 MCHC (33.0 - 37.0 G/DL) 34.1 RDW (11.5 - 14.5 %) 14.1 Plt Count (130 - 400 /CUMM) 599 H MPV (7.4 - 10.4 FL) 6.9 L Gran % (42.2 - 75.2 %) 70.3 Lymphocytes % (20.5 - 51.1 %) 16.9 L Monocytes % (1.7 - 9.3 %) 6.8 Eosinophils % (0 - 5 %) 5.6 H Basophils % (0.0 - 2.0 %) 0.4 Absolute Granulocytes (1.4 - 6.5 /CUMM) 7.8 H Absolute Lymphocytes (1.2 - 3.4 /CUMM) 1.9 Absolute Monocytes (0.10 - 0.60 /CUMM) 0.8 H Absolute Eosinophils (0.0 - 0.7 /CUMM) 0.6 Absolute Basophils (0.0 - 0.2 /CUMM) 0 Miscellaneous Ref Lab Test Result Pending Microbiology Date/Time Procedure - Status Source Growth 02/08 900 Respiratory Culture - RECD LOWER RESP 02/08 900 Gram Stain - RECD LOWER RESP 02/08 900 Routine Culture - RECD LOWER RESP 02/08 900 AFB Culture with PCR Identification - RECD LOWER RESP 02/08 900 AFB Smear Concentration - RECD LOWER RESP 02/08 1656 Respiratory Culture - CAN LOWER RESP Cancelled: NOT COLLECTED 02/08 1656 Gram Stain - CAN LOWER RESP Cancelled: NOT COLLECTED 02/06 2300 Legionella Antigen - COMP URINE ROUT 06/01 2300 Streptococcus pneumoniae Antigen (M - COMP URINE ROUT 02/06 2224 Blood Culture - RES BLOOD 02/07 2132 Respiratory Culture - CAN LOWER RESP Cancelled: SPECIMEN NOT RECEIVED IN LABORATORY 02/07 2132 Gram Stain - CAN LOWER RESP Cancelled: SPECIMEN NOT RECEIVED IN LABORATORY 02/06 1923 Blood Culture - RES BLOOD Impression/Plan Impression/Plan Impression/Plan: General Appearance: well developed/nourished, no apparent distress, alert, awake Head: atraumatic, normal appearance Eyes: Bilateral: normal appearance, PERRL, EOMI. Ears, Nose, Throat: normal pharynx, normal ENT inspection, hearing grossly normal Neck: normal inspection, supple, full range of motion Respiratory: CHEST WALL TENDERNESS TO PALPATION OVER THE STERNUM LEFT AND RIGHT CHEST. nO BRUISING SWELLING OR ABRASIONS Cardiovascular: regular rate/rhythm, normal peripheral pulses Peripheral Pulses: 2+ radial (R), 2+ radial (L) Gastrointestinal: soft, non-tender Extremities: normal range of motion, MILD BILATERAL LOWER EXTREMITY EDEMA Neurologic/Psych: no motor/sensory deficits, awake, alert, oriented x 3 Skin: intact, normal color, warm/dry Lymphatic: no anterior cervical gabby IMPRESSION: 1. Very limited exam. No gross central pulmonary emboli. Distal emboli not excluded. 2. Relatively peripheral pleural-based parenchymal abnormality is of uncertain significance. Diagnostic considerations include infectious inflammatory conditions. Pulmonary infarcts not excluded as well as tumor including entities such as lymphoma. There is significant mediastinal lymphadenopathy which appears pathologic. If further imaging is desired, recommend PET/CT. Pulmonary medicine consultation recommended. No previous CT scans. VTE: indeterminate Ultrasound abd nil acute No DVT in the lower extremity Doppler SIGNIFICANT DATA CT scan and others reviewed Blood work unremarkable albumin low his alkaline phosphatase is elevated to 301 AST ALT elevated bilirubin normal his blood work in September was unremarkable other than slightly elevated anion gap's last PSA was normal HIV neg IMPRESSION This is a gentleman with history of hypertension, obstructive sleep apnea not on CPAP regularly, hyperlipidemia, previous history of allergic rhinitis, 15-pack- year smoker quit more than 25 years ago has * Significant cough which is dry in the beginning now with slight blood-tinged sputum with excessive coughing with no significant fever bilateral pulmonary masslike opacity with volume loss with mild lymphadenopathy in the mediastinum with no significant large pulmonary embolism noted. Differential diagnoses include atypical pneumonia including psittacosis as he has birds versus metastatic malignancy versus organizing pneumonia. Full workup needs to be done. 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 * Mild eosinophilia dry cough peripheral infiltrates rule out atypical infection including psittacosis. No significant exposure to any endemic fungi in the recent past unlikely this is any other organism * Unlikely pulmonary embolism as he has no DVT and no large PE and no evidence suggestive of right heart strain * Altered LFTs, elevated alkaline phosphatase rule out any other pathology in the abdomen which needs workup RECOMMENDATION * Order CMP and cbc, CEA, PSA today * IF NOT ORDERED YESTERDAY) -CRP, ESR, KAYA, ANCA panel, Hep c antibody Croglobulin, COmplement levels * COnt abx * Cough controlled by codeine cough syrup, ipratropium nebulizer therapy around the clock 3 times a day, start gabapentin 300 at bedtime if he can tolerate it * Low-dose steroid inhaler We'll consider CT scan guided needle biopsy if he does not have a good response with doxycycline
[2018-02-08 11:48] LABS: ABSOLUTE BASOPHIL COUNT 0 /CUMM (0.0-0.2); ABSOLUTE EOSINOPHIL COUNT 0.7 /CUMM (0.0-0.7); ABSOLUTE GRANULOCYTE CT 9.6 /CUMM (1.4-6.5); ABSOLUTE LYMPH COUNT 2.9 /CUMM (1.2-3.4); ABSOLUTE MONOCYTE COUNT 1.2 /CUMM (0.10-0.60); BASOPHIL % 0.3 % (0.0-2.0); EOSINOPHIL % 4.6 % (0-5); GRANULOCYTE % 66.6 % (42.2-75.2); HEMATOCRIT 34.2 % (42-52); MEAN CORPUSCULAR HGB 28.2 PG (27.0-31.0); MEAN CORPUSCULAR HGB CONC 33.5 G/DL (33.0-37.0); MEAN CORPUSCULAR VOLUME 84.1 FL (80.0-94.0); MEAN PLATELET VOLUME 7.2 FL (7.4-10.4); PLATELET COUNT 695 /CUMM (130-400); RED BLOOD CELL CT 4.06 /CUMM (4.70-6.10); WHITE BLOOD CELL COUNT 14.5 /CUMM (4.8-10.8)
[2018-02-08 11:55] LABS: PT 14.9 SEC (9.4-12.5)
--- NOTE | 2018-02-08 14:06 | PN- Gen Med ---
Assessment/Plan Medical Assessment: 62 yr old male with PMH of hypertension, hyperlipidemia, obstructive sleep apnea, and recurrent bronchitis, who presented because of progressive cough that started 3 weeks ago and is getting worse. 5 days ago he developed hemoptysis. He has a 10 year history of smoking but he quit 25 years ago. On imaging he had bilateral pulmonary mass with infiltration and mediastinal pathological lymphadenopathy. CTA did not show any PE. He is also complaining of bilateral lower chest pain that's most likely secondary to the cough, he's been taking Tylenol 1000 mg every 6 hours for the past week which can possibly explain his transaminitis. Pneumonia- Differential could be from atypical pneumonia including psittacosis as he has birds versus metastatic malignancy versus organizing pneumonia. Plan to get CT guided biopsy tomorrow by IR. Ordered workup per pulmonary. will f/u on that. and will recheck his wbc as gone up today. appreciated pulm input. Pt still coughing. Transaminitis- ultraosound shows mildly enlarged liver. likely sec to his tylenol use. resolving now. Problem List: 1. Lymphadenopathy 2. Dyspnea 3. Hemoptysis Subjective Review of Systems Constitutional: Denies: chills, fever. Cardiovascular: Reports: chest pain. Denies: palpitations. Respiratory: Reports: cough. Gastrointestinal: Denies: abdominal pain. Objective Last 24 Hrs of Vital Signs/I&O Vital Signs Date Time Temp Pulse Resp B/P B/P Pulse O2 O2 Flow FiO2 Mean Ox Delivery Rate 02/08 0953 64 140/69 06/03 0952 64 140/69 /03 0800 96 Room Air / 0620 98.2 64 18 140/69 98 CPAP /03 0025 75 95 06/02 2302 98.5 80 20 160/62 94 Room Air 06/02 2249 95 06/02 1600 Room Air 06/02 1507 98.7 79 20 130/70 95 06/02 1418 Nasal 2.0L Cannula Intake & Output 02/08 1600 / 0800 06/ 0000 Intake Total 100 100 Output Total 500 Balance -400 100 Intake, Oral 100 100 Output, Urine 500 Physical Exam General Appearance: Alert, Oriented X3, Cooperative, No Acute Distress HEENT: Atraumatic, EOMI Cardiovascular: Regular Rate, Normal S1, Normal S2 Lungs: [place] b/l Abdomen: Soft Neurological: Normal Speech
[2018-02-08 15:08] VITALS: BP 130/70
[2018-02-08 22:27] VITALS: BP 147/79
[2018-02-09 06:20] VITALS: BP 139/75
[2018-02-09 08:47] LABS: ABSOLUTE BASOPHIL COUNT 0.1 /CUMM (0.0-0.2); ABSOLUTE EOSINOPHIL COUNT 0.9 /CUMM (0.0-0.7); ABSOLUTE GRANULOCYTE CT 7.3 /CUMM (1.4-6.5); ABSOLUTE LYMPH COUNT 3.8 /CUMM (1.2-3.4); ABSOLUTE MONOCYTE COUNT 1.5 /CUMM (0.10-0.60); BASOPHIL % 0.5 % (0.0-2.0); EOSINOPHIL % 6.7 % (0-5); GRANULOCYTE % 53.9 % (42.2-75.2); HEMATOCRIT 32.2 % (42-52); MEAN CORPUSCULAR HGB 28.3 PG (27.0-31.0); MEAN CORPUSCULAR HGB CONC 33.5 G/DL (33.0-37.0); MEAN CORPUSCULAR VOLUME 84.5 FL (80.0-94.0); MEAN PLATELET VOLUME 7.3 FL (7.4-10.4); PLATELET COUNT 631 /CUMM (130-400); RBC DISTRIBUTION WIDTH 14.5 % (11.5-14.5); RED BLOOD CELL CT 3.82 /CUMM (4.70-6.10); WHITE BLOOD CELL COUNT 13.6 /CUMM (4.8-10.8)
--- NOTE | 2018-02-09 09:47 | PN- Housestaff ---
See Addendum Subjective Follow-up For: Hemoptysis with lung mass Subjective: Continues to complain of cough. States Tessalon Perles seem to help. He has been having episodes of hemoptysis. Bilateral rib pain with coughing. No fevers or chills overnight. Review of Systems Constitutional: Reports: see HPI. Objective Last 24 Hrs of Vital Signs/I&O Vital Signs Date Time Temp Pulse Resp B/P B/P Pulse O2 O2 Flow FiO2 Mean Ox Delivery Rate 02/09 0904 99.0 75 18 139/75 02/09 0904 99.0 75 18 139/75 / 0620 99.0 75 18 139/75 94 Room Air / 0000 Nasal 2.0L Cannula 02/09 0000 68 98 02/08 2252 68 98 02/08 2227 100.5 72 18 147/79 99 Nasal 2.0L Cannula 02/08 1508 99.5 81 20 130/70 95 /03 0953 64 140/69 02/08 0952 64 140/69 Intake & Output 02/09 1600 02/09 0800 02/09 0000 Intake Total 100 100 Output Total 1150 Balance -1050 100 Intake, Oral 100 100 Output, Urine 1150 Physical Exam General Appearance: Alert, Oriented X3, Cooperative Cardiovascular: Regular Rate, Normal S1, Normal S2 Lungs: Clear to Auscultation, Normal Air Movement Abdomen: Normal Bowel Sounds, Soft, No Tenderness Extremities: No Clubbing, No Cyanosis, No Edema Current Medications: Current Medications Sig/Jonel Start time Last Medication Dose Route Stop Time Status Admin Albuterol Sulfate 2 PUF Q4P PRN 02/07 1430 AC INH Amlodipine Besylate 5 MG DAILY 02/07 900 AC 02/09 PO 0904 Aspirin Buffered 81 MG DAILY 02/07 900 AC 02/09 PO 0904 Atorvastatin Calcium 10 MG DAILY 02/07 900 AC 02/09 PO 0904 Benzonatate 100 MG TID 02/09 09 UNVr PO Benzonatate 100 MG ONCE ONE 02/08 1745 DC 02/08 PO 02/08 1746 1755 Ceftriaxone Sodium 1,000 MG DAILY 02/07 900 AC 02/09 IV 0902 Doxycycline Hyclate 100 MG BID 02/06 2146 AC 02/09 PO 09 Famotidine 20 MG DAILY 02/07 900 AC 02/09 PO 09 Fluticasone 2 PUF BID 02/06 2152 AC 02/09 Propionate INH 0902 Gabapentin 300 MG AT BEDTIME 02/07 2100 AC 02/08 PO 210 Guaifenesin 10 ML .STK-MED ONE 02/08 2100 DC PO 02/08 210 Guaifenesin 10 ML Q4P PRN 02/06 2200 AC 02/09 PO 0905 Heparin Sodium 5,000 UNIT Q8 02/06 220 AC 02/09 (Porcine) SC 0527 Ipratropium [place] 2.5 ML TID 02/06 2149 AC INH Losartan Potassium 50 MG DAILY 02/07 0900 AC 02/09 PO 0904 Oxycodone HCl 5 MG Q6 PRN 02/06 2230 AC 02/09 PO 0904 Polyethylene Glycol 17 GM DAILY 02/06 2300 AC 02/07 PO 0955 Last 24 Hrs of Lab/Cody Results Last 24 Hrs of Labs/Mics: Laboratory Tests 02/09/18 0630: Total Bilirubin 0.3, Direct Bilirubin 0.3, AST 36, ALT 107 H, Alkaline Phosphatase 163 H, Total Protein 6.5, Albumin 3.1 L, CBC w Diff Pending, WBC Pending, RBC Pending, Hgb Pending, Hct Pending, MCV Pending, MCH Pending, MCHC Pending, RDW Pending, Plt Count Pending, MPV Pending, Gran % Pending, Lymphocytes % Pending, Monocytes % Pending, Eosinophils % Pending, Basophils % Pending, Absolute Granulocytes Pending, Absolute Lymphocytes Pending, Absolute Monocytes Pending, Absolute Eosinophils Pending, Absolute Basophils Pending 02/08/18 1135: PT 14.9 H, INR 1.36 H, CBC w Diff NO MAN DIFF REQ, RBC 4.06 L, MCV 84.1, MCH 28.2, MCHC 33.5, RDW 15.0 H, MPV 7.2 L, Gran % 66.6, Lymphocytes % 19.9 L, Monocytes % 8.6, Eosinophils % 4.6, Basophils % 0.3, Absolute Granulocytes 9.6 H, Absolute Lymphocytes 2.9, Absolute Monocytes 1.2 H, Absolute Eosinophils 0.7 , Absolute Basophils 0, ESR Westergren 94 H 02/08/18 1130: Carcinoembryonic Ag Pending, Cryoglobulin Interp Pending, ANCA Pending, Complement C3 Pending, Complement C4 Pending 02/08/18 1059: Anion Gap 10, Estimated GFR > 60, BUN/Creatinine Ratio 23.8, Total Bilirubin 0.2 , Direct Bilirubin 0.1, AST 70 H, ALT 156 H, Alkaline Phosphatase 191 H, C- Reactive Prot, Quant 8.7 H, Total Protein 6.9, Albumin 3.5, Total PSA 0.92, KAYA Titer Pending, Anti-Nuclear Antibody Pending, Hepatitis C Antibody NONREACTIVE Assessment/Plan Assessment: 62-year-old gentleman with three-week history of persistent cough presented with hemoptysis to [facility] ED, with no leukocytosis on admission, no kidney dysfunction, but a very high ESR of 94 and a CRP of 8.7, normal IgE levels, no peripheral eosinophilia, no history of asthma-presentation suspicious for a malignancy versus rheumatological disorder. 1. Subacute hemoptysis in the setting of persistent cough. Patient continues to have persistent cough. Trial with first generation antihistamine at bedtime. Continue Tessalon Perles. Continue Ventolin. Gabapentin at midnight, which ideally helps with learnt behavior cough. At this time, await CT-guided biopsy of mediastinal lymphadenopathy. Rheumatological diseases like Goodpasture(likely with no proteinuria and normal kidney function), granulomatosis with polyangiitis, eosinophilic with polyangiitis workup underway. Await complement levels, c-ANCA, KAYA etc. Decreased complement levels may point towards ANCA vasculitis. Malignancy like lymphoma or granulomatous disease like sarcoidosis is another consideration. Check LDH and uric acid levels and MORGAN levels. Entities like acute eosinophilic pneumonia/chronic eosinophilic pneumonia/ABPA unlikely in the setting of no asthma history, no peripheral eosinophilia and normal IgE levels. Cryptogenic organizing pneumonia is another possibility. Another consideration, albeit of exclusion, can be given to losartan induced cough. Theoretically, since MORGAN is a kinninase, inhibiting MORGAN causes reduced Kinin degradation, leading to bradykinin accumulation and hence contributing to cough. Arbs do not exert that action, and hence do not result in cough. There have been isolated case reports of losartan/valsartan induced cough, resolved upon discontinuation of drug. Obviously, this is diagnosis of exclusion. Atypical pneumonia with chlamydia psittacci screen has been ordered. Continue treatment with IV ceftriaxone and doxycycline. No recent travel makes histoplasmosis, blastomycosis, coccidio etc. unlikely. Continue symptomatic treatment. 2. Transaminitis. Improving. Ultrasound suggestive of underlying liver disease with no focal lesions. 3. Continue famotidine. Toña prediction score for risk of DVT-2. In this patient with hemoptysis and low toña score-recommend ambulation and mechanical prophylaxis, discontinue pharmacological prophylaxis. Full code. Mechanical DVT prophylaxis. Heart healthy diet. Problem List: 1. Hemoptysis 2. Lymphadenopathy 3. Dyspnea Pain Ratin Pain Location: Ribs Pain Goal: Remain pain free Pain Plan: PRN Tomorrow's Labs & Rationales: Acutely ill patient.
--- NOTE | 2018-02-09 12:45 | PN- Pulmonary ---
Subjective HPI/Critical Care Issues: Continues to complain of cough. States Tessalon Perles seem to help. He has been having episodes of hemoptysis. Bilateral rib pain with coughing. No fevers or chills overnight. Review of Systems Constitutional: Reports: see HPI. Objective Current Medications: Current Medications Sig/Jonel Start time Last Medication Dose Route Stop Time Status Admin Albuterol Sulfate 2 PUF Q4P PRN 02/07 1430 AC INH Amlodipine Besylate 5 MG DAILY 02/07 09 AC 02/09 PO 0904 Aspirin Buffered 81 MG DAILY 02/07 0900 AC 02/09 PO 0904 Atorvastatin Calcium 10 MG DAILY 02/07 0900 AC 02/09 PO 0904 Benzonatate 100 MG TID 02/09 0924 AC 02/09 PO 1101 Benzonatate 100 MG ONCE ONE 02/08 1745 DC 02/08 PO 02/08 1746 1755 Ceftriaxone Sodium 1,000 MG DAILY 02/07 0900 DC 02/09 IV 0902 Doxycycline Hyclate 100 MG BID 02/06 2146 DC 02/09 PO 0904 Famotidine 20 MG DAILY 02/07 0900 AC 02/09 PO 0904 Fluticasone 2 PUF BID 02/06 2152 AC 02/09 Propionate INH 0902 Gabapentin 300 MG AT BEDTIME 02/07 2100 AC 02/08 PO 2102 Guaifenesin 10 ML .STK-MED ONE 02/08 2100 DC PO 02/08 2101 Guaifenesin 10 ML Q4P PRN 02/06 2200 AC 02/09 PO 0905 Heparin Sodium 5,000 UNIT Q8 02/06 2200 DC 02/09 (Porcine) SC 0527 Ipratropium [place] 2.5 ML TID 02/06 2149 AC INH Losartan Potassium 50 MG DAILY 02/07 0900 AC 02/09 PO 0904 Moxifloxacin HCl 400 MG DAILY 02/09 1134 AC PO Oxycodone HCl 5 MG Q6 PRN 02/06 2230 AC 02/09 PO 0904 Polyethylene Glycol 17 GM DAILY 02/06 2300 AC 02/07 PO 0955 Vital Signs & I&O Last 24 Hrs of Vitals and I&O: Vital Signs Date Time Temp Pulse Resp B/P B/P Pulse O2 O2 Flow FiO2 Mean Ox Delivery Rate 02/10 904 99.0 75 18 139/75 06/04 0904 99.0 75 18 139/75 06/04 0800 Nasal 2.0L Cannula 06/ 0620 99.0 75 18 139/75 94 Room Air / 0000 Nasal 2.0L Cannula / 0000 68 98 06/ 2252 68 98 06/ 2227 100.5 72 18 147/79 99 Nasal 2.0L Cannula / 1508 99.5 81 20 130/70 95 Intake & Output / 1600 06/04 0800 06/04 0000 Intake Total 100 100 Output Total 1150 Balance -1050 100 Intake, Oral 100 100 Output, Urine 1150 Impression/Plan Impression/Plan Impression/Plan: General Appearance: well developed/nourished, no apparent distress, alert, awake Head: atraumatic, normal appearance Eyes: Bilateral: normal appearance, PERRL, EOMI. Ears, Nose, Throat: normal pharynx, normal ENT inspection, hearing grossly normal Neck: normal inspection, supple, full range of motion Respiratory: CHEST WALL TENDERNESS TO PALPATION OVER THE STERNUM LEFT AND RIGHT CHEST. nO BRUISING SWELLING OR ABRASIONS Cardiovascular: regular rate/rhythm, normal peripheral pulses Peripheral Pulses: 2+ radial (R), 2+ radial (L) Gastrointestinal: soft, non-tender Extremities: normal range of motion, MILD BILATERAL LOWER EXTREMITY EDEMA Neurologic/Psych: no motor/sensory deficits, awake, alert, oriented x 3 Skin: intact, normal color, warm/dry Lymphatic: no anterior cervical gabby IMPRESSION: 1. Very limited exam. No gross central pulmonary emboli. Distal emboli not excluded. 2. Relatively peripheral pleural-based parenchymal abnormality is of uncertain significance. Diagnostic considerations include infectious inflammatory conditions. Pulmonary infarcts not excluded as well as tumor including entities such as lymphoma. There is significant mediastinal lymphadenopathy which appears pathologic. If further imaging is desired, recommend PET/CT. Pulmonary medicine consultation recommended. No previous CT scans. VTE: indeterminate Ultrasound abd nil acute No DVT in the lower extremity Doppler SIGNIFICANT DATA CT scan and others reviewed Blood work unremarkable albumin low his alkaline phosphatase is elevated to 301 AST ALT elevated bilirubin normal his blood work in September was unremarkable other than slightly elevated anion gap's last PSA was normal HIV neg IMPRESSION This is a gentleman with history of hypertension, obstructive sleep apnea not on CPAP regularly, hyperlipidemia, previous history of allergic rhinitis, 15-pack- year smoker quit more than 25 years ago has * Significant cough which is dry in the beginning now with slight blood-tinged sputum with excessive coughing with no significant fever bilateral pulmonary masslike opacity with volume loss with mild lymphadenopathy in the mediastinum with no significant large pulmonary embolism noted. Differential diagnoses include atypical pneumonia including psittacosis as he has birds versus metastatic malignancy versus organizing pneumonia. Full workup needs to be done. 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 * Mild eosinophilia dry cough peripheral infiltrates rule out atypical infection including psittacosis. No significant exposure to any endemic fungi in the recent past unlikely this is any other organism * Unlikely pulmonary embolism as he has no DVT and no large PE and no evidence suggestive of right heart strain * Altered LFTs, elevated alkaline phosphatase improving RECOMMENDATION * COnt current meds * Place an order for ct guided bx of the lung for tommorow (discussed with IR and they will do it tommorow am) * Await all blood work * Cont current abx * Swab for MRSA * Will watch for eosinophila and then decide
[2018-02-09 14:00] VITALS: BP 122/68
[2018-02-09 22:40] VITALS: BP 129/62
[2018-02-10 05:55] VITALS: BP 130/72
--- NOTE | 2018-02-10 08:18 | PN- Housestaff ---
See Addendum Subjective Follow-up For: Hemoptysis with lung mass Subjective: Notes improvement in his cough symptoms. No more episodes of hemoptysis. Rib pain seems to be improving. Afebrile overnight. No other complaints. Review of Systems Constitutional: Reports: see HPI. Objective Last 24 Hrs of Vital Signs/I&O Vital Signs Date Time Temp Pulse Resp B/P B/P Pulse O2 O2 Flow FiO2 Mean Ox Delivery Rate 02/10 0800 Nasal 2.0L Cannula 02/10 0723 98.1 74 24 130/72 06/05 0722 98.1 74 24 130/72 06/05 0555 98.1 74 24 130/72 95 Nasal 2.0L Cannula / 0000 97 Nasal 2.0L Cannula / 2240 98.9 71 20 129/62 97 / 1400 98.3 72 18 122/68 97 Nasal 2.0L Cannula Intake & Output 02/10 1600 02/10 0800 06/ 0000 Intake Total 70 610 Output Total Balance 70 610 Intake, IV 10 10 Intake, Oral 60 600 Number 1 Bowel Movements Physical Exam General Appearance: Alert, Oriented X3, Cooperative Cardiovascular: Regular Rate, Normal S1, Normal S2 Lungs: Clear to Auscultation, Normal Air Movement Abdomen: Normal Bowel Sounds, Soft, No Tenderness Extremities: No Clubbing, No Cyanosis, No Edema Current Medications: Current Medications Sig/Jonel Start time Last Medication Dose Route Stop Time Status Admin Albuterol Sulfate 2 PUF Q4P PRN 02/07 1430 AC INH Amlodipine Besylate 5 MG DAILY 02/07 900 AC 02/10 PO 0723 Aspirin Buffered 81 MG DAILY 02/07 900 DC 02/09 PO 0904 Atorvastatin Calcium 10 MG DAILY 02/07 09 AC 02/10 PO 0722 Benzocaine/Menthol 1 ELYSE Q2P PRN 02/10 0945 AC PO Benzonatate 200 MG TID 02/10 1400 AC PO Benzonatate 100 MG TID 02/09 0924 DC 02/10 PO 0723 Ceftriaxone Sodium 1,000 MG DAILY 02/07 900 DC 02/09 IV 0902 Doxycycline Hyclate 100 MG BID 02/10 1015 AC PO Doxycycline Hyclate 100 MG BID 02/06 2146 DC 02/09 PO 0904 Famotidine 20 MG DAILY 02/07 900 AC 02/10 PO 0723 Fluticasone 2 PUF BID 02/06 2152 AC 02/10 Propionate INH 0722 Gabapentin 300 MG AT BEDTIME 02/07 2100 AC 02/09 PO 2004 Guaifenesin 10 ML .STK-MED ONE 02/09 192 DC PO 02/09 192 Guaifenesin 10 ML Q4P PRN 02/06 2200 AC 02/10 PO 0726 Ipratropium [place] 2.5 ML TID 02/06 2149 AC INH Losartan Potassium 50 MG DAILY 02/07 0900 AC 02/10 PO 0722 Moxifloxacin HCl 400 MG DAILY 02/09 1134 AC 02/10 PO 0722 Oxycodone HCl 5 MG Q6 PRN 02/06 2230 AC 02/10 PO 0438 Patient Medication 1 ED ONE ONE 02/10 1000 [facility] ED 02/10 1001 Polyethylene Glycol 17 GM DAILY 02/06 2300 AC 02/07 PO 0955 Last 24 Hrs of Lab/Cody Results Last 24 Hrs of Labs/Mics: Laboratory Tests 02/10/18 0640: Anion Gap 10, Estimated GFR > 60, BUN/Creatinine Ratio 13.8, Total Bilirubin 0.3 , Direct Bilirubin 0.2, AST 45, ALT 100 H, Alkaline Phosphatase 133 H, Total Protein 6.4, Albumin 3.1 L, CBC w Diff NO MAN DIFF REQ, RBC 3.80 L, MCV 84.6, MCH 28.2, MCHC 33.3, RDW 14.9 H, MPV 7.3 L, Gran % 49.1, Lymphocytes % 32.0, Monocytes % 10.3 H, Eosinophils % 8.1 H, Basophils % 0.5, Absolute Granulocytes 5.6, Absolute Lymphocytes 3.7 H, Absolute Monocytes 1.2 H, Absolute Eosinophils 0.9, Absolute Basophils 0.1 Microbiology 02/09 1134 UPPER RESP: Surveillance Culture - RECD Assessment/Plan Assessment: 62-year-old gentleman with three-week history of persistent cough presented with hemoptysis to [facility] ED, with no leukocytosis on admission, no kidney dysfunction, but a very high ESR of 94 and a CRP of 8.7, normal IgE levels, no peripheral eosinophilia, no history of asthma-presentation suspicious for a malignancy versus rheumatological disorder. 1. Subacute hemoptysis in the setting of persistent cough. Improvement of symptoms with Tessalon Perles. Increase dose to 200 mg 3 times daily. Chloraseptic lozenges. Trial with first generation antihistamine at bedtime. Continue Ventolin. Gabapentin at midnight, which ideally helps with learnt behavior cough. At this time, await CT-guided biopsy of mediastinal lymphadenopathy. Rheumatological diseases like Goodpasture(unlikely with no proteinuria and normal kidney function), granulomatosis with polyangiitis, eosinophilic granulomatosis with polyangiitis workup underway. Await complement levels, c- ANCA, KAYA etc. Decreased complement levels may point towards ANCA vasculitis. Malignancy like lymphoma or granulomatous disease like sarcoidosis is another consideration. Check LDH, uric acid levels and MORGAN levels. Entities like acute eosinophilic pneumonia/chronic eosinophilic pneumonia/ABPA unlikely in the setting of no asthma history, no peripheral eosinophilia and normal IgE levels. Cryptogenic organizing pneumonia is another possibility. Another consideration, albeit of exclusion, can be given to losartan induced cough. Theoretically, since MORGAN is a kinninase, inhibiting MORGAN causes reduced Kinin degradation, leading to bradykinin accumulation and hence contributing to cough. Arbs do not exert that action, and hence do not result in cough. There have been isolated case reports of losartan/valsartan induced cough, resolved upon discontinuation of drug. Obviously, this is diagnosis of exclusion. Atypical pneumonia with chlamydia psittacci screen has been ordered. Continue treatment with p.o. moxifloxacin and doxycycline. Moxifloxacin for 5 days and doxycycline for a total of 14 days. If oxygenation improves, during the course of the day anticipate discharge later today. With close follow-up with Dr. Mckeon (tomorrow). We will provide with prescription for nebulizer as well as Flovent. Continue other symptomatic treatment. CT-guided biopsy of the lung mass as an outpatient on 01/13/2018. Will call interventional radiology. 2. Transaminitis. Improving. Ultrasound suggestive of underlying liver disease with no focal lesions. 3. Continue famotidine. Toña prediction score for risk of DVT-2. In this patient with hemoptysis and low toña score-recommend ambulation and mechanical prophylaxis, discontinue pharmacological prophylaxis. Full code. Mechanical DVT prophylaxis. Heart healthy diet. Problem List: 1. Hemoptysis 2. Lymphadenopathy 3. Dyspnea Pain Ratin Pain Location: Bilateral ribs. Pain Goal: Pain 4 or less Pain Plan: PRN Tomorrow's Labs & Rationales: Not needed
[2018-02-10 08:30] LABS: ABSOLUTE BASOPHIL COUNT 0.1 /CUMM (0.0-0.2); ABSOLUTE EOSINOPHIL COUNT 0.9 /CUMM (0.0-0.7); ABSOLUTE GRANULOCYTE CT 5.6 /CUMM (1.4-6.5); ABSOLUTE LYMPH COUNT 3.7 /CUMM (1.2-3.4); ABSOLUTE MONOCYTE COUNT 1.2 /CUMM (0.10-0.60); BASOPHIL % 0.5 % (0.0-2.0); EOSINOPHIL % 8.1 % (0-5); HEMATOCRIT 32.2 % (42-52); MEAN CORPUSCULAR HGB 28.2 PG (27.0-31.0); MEAN CORPUSCULAR HGB CONC 33.3 G/DL (33.0-37.0); MEAN CORPUSCULAR VOLUME 84.6 FL (80.0-94.0); MEAN PLATELET VOLUME 7.3 FL (7.4-10.4); RBC DISTRIBUTION WIDTH 14.9 % (11.5-14.5); WHITE BLOOD CELL COUNT 11.5 /CUMM (4.8-10.8)
[2018-02-10 09:02] LABS: PLATELET COUNT 630 /CUMM (130-400)
[2018-02-10 09:03] LABS: GRANULOCYTE % 49.1 % (42.2-75.2)
--- NOTE | 2018-02-10 12:26 | PN- Pulmonary ---
Subjective HPI/Critical Care Issues: Doing well stable still coughing fatigue Objective Current Medications: Current Medications Sig/Jonel Start time Last Medication Dose Route Stop Time Status Admin Albuterol Sulfate 2 PUF Q4P PRN 02/07 1430 AC INH Amlodipine Besylate 5 MG DAILY 02/07 0900 AC 02/10 PO 0723 Aspirin Buffered 81 MG DAILY 02/07 0900 DC 02/09 PO 0904 Atorvastatin Calcium 10 MG DAILY 02/07 0900 AC 02/10 PO 0722 Benzocaine/Menthol 1 ELYSE Q2P PRN 02/10 0945 AC 02/10 PO 1149 Benzonatate 200 MG TID 02/10 1400 AC PO Benzonatate 100 MG TID 02/09 0924 DC 02/10 PO 0723 Doxycycline Hyclate 100 MG BID 02/10 1015 AC 02/10 PO 1149 Famotidine 20 MG DAILY 02/07 0900 AC 02/10 PO 0723 Fluticasone 2 PUF BID 02/06 2152 AC 02/10 Propionate INH 0722 Gabapentin 300 MG AT BEDTIME 02/07 2100 AC 02/09 PO 2005 Guaifenesin 10 ML .STK-MED ONE 02/09 1928 DC PO 02/09 1929 Guaifenesin 10 ML Q4P PRN 02/06 2200 AC 02/10 PO 0726 Ipratropium [place] 2.5 ML TID 02/06 2149 AC INH Losartan Potassium 50 MG DAILY 02/07 0900 AC 02/10 PO 0722 Moxifloxacin HCl 400 MG DAILY 02/09 1134 AC 02/10 PO 0722 Oxycodone HCl 5 MG Q6 PRN 02/06 2230 AC 02/10 PO 0438 Patient Medication 1 ED ONE ONE 02/10 1000 [facility] 02/10 1001 Polyethylene Glycol 17 GM DAILY 02/06 2300 AC 02/07 PO 0955 Vital Signs & I&O Last 24 Hrs of Vitals and I&O: Vital Signs Date Time Temp Pulse Resp B/P B/P Pulse O2 O2 Flow FiO2 Mean Ox Delivery Rate 02/10 08 Nasal 2.0L Cannula 02/10 07 98.1 74 24 130/72 02/10 0722 98.1 74 24 130/72 / 0555 98.1 74 24 130/72 95 Nasal 2.0L Cannula 02/10 0000 97 Nasal 2.0L Cannula 02/09 2240 98.9 71 20 129/62 97 06/ 1400 98.3 72 18 122/68 97 Nasal 2.0L Cannula Intake & Output 02/10 1600 06/05 0800 06/05 0000 Intake Total 70 610 Output Total Balance 70 610 Intake, IV 10 10 Intake, Oral 60 600 Number 1 Bowel Movements Impression/Plan Impression/Plan Impression/Plan: General Appearance: well developed/nourished, no apparent distress, alert, awake Head: atraumatic, normal appearance Eyes: Bilateral: normal appearance, PERRL, EOMI. Ears, Nose, Throat: normal pharynx, normal ENT inspection, hearing grossly normal Neck: normal inspection, supple, full range of motion Respiratory: CHEST WALL TENDERNESS TO PALPATION OVER THE STERNUM LEFT AND RIGHT CHEST. nO BRUISING SWELLING OR ABRASIONS Cardiovascular: regular rate/rhythm, normal peripheral pulses Peripheral Pulses: 2+ radial (R), 2+ radial (L) Gastrointestinal: soft, non-tender Extremities: normal range of motion, MILD BILATERAL LOWER EXTREMITY EDEMA Neurologic/Psych: no motor/sensory deficits, awake, alert, oriented x 3 Skin: intact, normal color, warm/dry Lymphatic: no anterior cervical gabby IMPRESSION: 1. Very limited exam. No gross central pulmonary emboli. Distal emboli not excluded. 2. Relatively peripheral pleural-based parenchymal abnormality is of uncertain significance. Diagnostic considerations include infectious inflammatory conditions. Pulmonary infarcts not excluded as well as tumor including entities such as lymphoma. There is significant mediastinal lymphadenopathy which appears pathologic. If further imaging is desired, recommend PET/CT. Pulmonary medicine consultation recommended. No previous CT scans. VTE: indeterminate Ultrasound abd nil acute No DVT in the lower extremity Doppler SIGNIFICANT DATA CT scan and others reviewed Blood work unremarkable albumin low his alkaline phosphatase is elevated to 301 AST ALT elevated bilirubin normal his blood work in September was unremarkable other than slightly elevated anion gap's last PSA was normal HIV neg IMPRESSION This is a gentleman with history of hypertension, obstructive sleep apnea not on CPAP regularly, hyperlipidemia, previous history of allergic rhinitis, 15-pack- year smoker quit more than 25 years ago has * Imroving hemoptysis with bilateral lung infiltrates with lymphadenopathy with a broad dif. work up ongoing. * Mild eosinophilia with thrombocytosis - with a dry cough peripheral infiltrates rule out atypical infection including psittacosis. No significant exposure to any endemic fungi in the recent past unlikely this is any other organism * Unlikely pulmonary embolism as he has no DVT and no large PE and no evidence suggestive of right heart strain * Improving Altered LFTs RECOMMENDATION * COnt current meds * Await blood work and lung biopsy (core needle bx of left lung opacity) * Cont abx- total of ceftriaxone / moxi combo * Doxy for 14 days * Await all blood work * Cont current abx * Swab for MRSA * Will watch for eosinophila and then decide if he would need a heme eval
[2018-02-10 13:47] VITALS: BP 138/60
[2018-02-10] MEDS ORDERED: CHLORASEPTIC S1 EACH PO (13:57)
[2018-02-10] MEDS ORDERED: FLOVENT HFA12 G1 INH (13:57)
[2018-02-10] MEDS ORDERED: DOXYCYCLINE HY100 M2 PO (13:57)
[2018-02-10] MEDS ORDERED: GABAPENTIN300 M2 PO (13:57)
[2018-02-10] MEDS ORDERED: IPRATROPIU0.2 MG/1 M INH (13:57)
[2018-02-10] MEDS ORDERED: MOXIFLOXACIN H400 M2 PO (13:57)
[2018-02-10] MEDS ORDERED: VENTOLIN HFA18 GM INH (13:57)
--- NOTE | 2018-02-10 14:01 | Patient Discharge Instructions ---
Discharge Instructions General Discharge Information You were seen/treated for: Persistent cough Blood in sputum Special Instructions: Please follow up with Dr. Mckeon on 02/11/18 at 3 pm (Just Show up at his office). Please follow up with PCP as an outpatient in 1-2 weeks. You have scheduled Lung Biopsy on 02/13/18. DONT TAKE ANY ASPIRIN UNTIL THEN. Diet Continue normal diet: Yes Acute Coronary Syndrome Inclusion Criteria At DC or during hospital stay patient has or had the following: ACS DIAGNOSIS No Discharge Core Measures Meds if any: Prescribed or Continued at Discharge Meds if any: NOT Prescribed or Continued at Discharge Congestive Heart Failure Inclusion Criteria At DC or during hospital stay patient has or had the following: CHF DIAGNOSIS No Discharge Core Measures Meds if any: Prescribed or Continued at Discharge Meds if any: NOT Prescribed or Continued at Discharge Cerebrovascular accident Inclusion Criteria At DC or during hospital stay patient has or had the following: CVA/TIA Diagnosis No Discharge Core Measures Meds if any: Prescribed or Continued at Discharge Meds if any: NOT Prescribed or Continued at Discharge Venous thromboembolism Inclusion Criteria VTE Diagnosis No VTE Type NONE VTE Confirmed by (Test) NONE Discharge Core Measures - Per Current guidelines, there needs to be overlap - treatment for the first 5 days of Warfarin therapy. - If discharged on Warfarin prior to 5 days of - overlap therapy, the patient will need to be - assessed for post discharge needs including - *Post discharge parental anticoagulation - *Warfarin and/or parental anticoagulation education - *Follow up date to check INR post discharge At least 5 days overlap therapy as Inpatient No Meds if any: Prescribed or Continued at Discharge Note: Overlap Therapy is Warfarin and Anticoagulant Meds if any: NOT Prescribed or Continued at Discharge
[2018-02-10] MEDS ORDERED: BENZONATATE100 M1 PO (14:12)
--- NOTE | 2018-02-10 16:41 | Discharge Summary ---
Visit Information Visit Dates Admission Date: 02/06/18 Discharge Date: 02/10/18 Hospital Course Course Attending Physician: Marcos Samson MD Primary Care Physician: Arben DIOR,Kiran Angeles Hospital Course: Mr. Nascimento is a 62 y/o male with history of hypertension dyslipidemia sleep apnea, ex-smoker who presented with complaints of shortness of breath, cough and hemoptysis. Initially his sputum was clear but now has been having blood- streaked sputum. His symptoms had persisted for weeks. He denied any recent travel, any recent exposure to sick individuals. He does have a parakeet at home, which he has had for last 10 years. All his symptoms started with an upper respiratory infection that persisted through weeks and prompted this current visit to the ED. He he had x-ray done was primary care doctor which showed that he has a possible mass. In the ED , blood pressure is 132/65, heart rate of 88, afebrile, on 2 L of oxygen via nasal cannula saturating about 95% Chest CTA, 02/06/2018 : IMPRESSION: 1. Very limited exam. No gross central pulmonary emboli. Distal emboli not excluded. 2. Relatively peripheral pleural-based parenchymal abnormality is of uncertain significance. Diagnostic considerations include infectious inflammatory conditions. Pulmonary infarcts not excluded as well as tumor including entities such as lymphoma. There is significant mediastinal lymphadenopathy which appears pathologic. If further imaging is desired, recommend PET/CT. Pulmonary medicine consultation recommended. No previous CT scans. VTE: indeterminate Assessment 1. 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 Normocytic anemia 3. Mild transaminitis 4. Hypertension Plan 1. Patient was admitted to general medicine floors. He was started on IV ceftriaxone and doxycycline. His CT scan showed mediastinal lymphadenopathy and process like lymphoma was a concern. Other processes like rheumatological problems were also considered. A psittacosis panel, compliment level, c-ANCA antibodies, CEA, KAYA, ESR, CRP, PSA were ordered while inpatient. Hepatitis panel remained negative. HIV nonreactive. His ESR was elevated at 94, KAYA negative and normal IgE levels. Other levels remain pending at this time. Due to concerning CAT scan findings, a CAT scan guided biopsy was scheduled on 02/10/2018. Unfortunately, patient was on aspirin prior to that and it was recommended by radiologist that the aspirin be held for at least 3 days before the biopsy. Patient will be discharged on 02/10/2018 and follow-up with outpatient radiology at [facility] for CT-guided lung biopsy once he is off aspirin for 3 days. During the course of his stay, he was provided with total respiratory care with nebulizers and inhalers; steroid inhaler. He was discharged on Chloraseptic lozenges, Tessalon Perles to help with his cough symptoms. The physical antibiotics, he was discharged on moxifloxacin to complete at least 5 day total (ceftriaxone plus moxifloxacin combo, 7 days) and doxycycline for a total of 14 days. He will follow-up with his primary care physician and hoist operator Dr. Mckeon on 02/11/2018. 2. Transaminitis. An abdominal ultrasound was obtained to rule out any biliary pathology. Ultrasound revealed echogenic mildly enlarged liver suggesting underlying liver disease, no focal lesions were identified. This needs to be followed up as an outpatient. Other home medications were continued while inpatient. To be discharged on 02/10/2018 with a very close follow-up with hoist operator Philip Mckeon MD on 02/11/2018. Full code. Mechanical plus pharmacological DVT prophylaxis was used. A regular diet was used. 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 Additional Diagnosis: Persistent bronchitis. Discharge Disposition: home or self care Discharge Instructions General Discharge Information Code Status: Full Code Patient's Diet: Regular diet. Patient's Activity: As tolerated. Follow-Up Instructions/Appts: Please follow-up with primary care physician as an outpatient. Please follow-up with Dr. Mckeon on 02/11/2018. Medications at Discharge Discharge Medications: Stop taking the following medications: Aspirin (Ecotrin*) 81 MG TABLET. ORAL DAILY Ibuprofen (Ibuprofen) 600 MG TABLET ORAL Q6H Azithromycin (Azithromycin) 250 MG TABLET ORAL As Directed Qty = 6 Amoxicillin/Clavulanate Potass (Amox-Clav 875-125 MG Tablet) 875 MG-125 MG TABLET ORAL TWICE DAILY Qty = 10 Continue taking these medications: Atorvastatin Calcium (Atorvastatin Calcium) 10 MG TABLET 1 Tablet ORAL DAILY Qty = 90 Loratadine (Claritin) 10 MG CAPSULE 1 Capsule ORAL DAILY Amlodipine Besylate (Amlodipine Besylate) 5 MG TABLET 1 Tablet ORAL DAILY Qty = 90 Valsartan (Diovan) 160 MG TABLET 1 Tablet ORAL DAILY Qty = 90 Multiple Vitamin (Multivitamins) 1 EACH TABLET 1 Tablet ORAL DAILY Ranitidine HCl (Acid Director [employer] Sales) 150 MG TABLET 1 Tablet ORAL DAILY Acetaminophen (Acetaminophen) 500 MG TABLET 2 Tablet ORAL Q6H Codeine Phosphate/Guaifenesi (Cheratussin AC Syrup) 10 MG-100 MG/5 ML LIQUID 10 Milliliters ORAL Q4H Qty = 180 Start taking the following new medications: Moxifloxacin HCl (Moxifloxacin HCl) 400 MG TABLET 400 Milligram ORAL DAILY Qty = 3 No Refills Instructions: TAKE TILL 02/13/18. Doxycycline Hyclate (Doxycycline Hyclate) 100 MG CAPSULE 100 Milligram ORAL TWICE DAILY Qty = 18 No Refills Instructions: TAKE TILL 02/19/18. Ipratropium [place] (Ipratropium [place]) 0.2 MG/ML (0.02 %) SOLUTION 2.5 Milliliters Inhale through mouth THREE TIMES DAILY Qty = 10 No Refills Albuterol Sulfate (Ventolin Hfa) 90 MCG HFA.AER.AD 2 Puff Inhale through mouth EVERY 4 HOURS NEEDED as needed for WHEEZING Qty = 2 No Refills Gabapentin (Gabapentin) 300 MG CAPSULE 300 Milligram ORAL AT BEDTIME Qty = 30 No Refills Fluticasone Propionate (Flovent Hfa) 110 MCG/ACTUATION AER.W.ADAP 2 Puff Inhale through mouth TWICE DAILY Qty = 2 No Refills Benzocaine/Menthol (Chloraseptic Sore Throat Lozng) 6 MG-10 MG LOZENGE 1 Lozenge ORAL EVERY 2 HOURS NEEDED as needed for Sore Throat Qty = 30 No Refills Benzonatate (Benzonatate) 100 MG CAPSULE 200 Milligram ORAL THREE TIMES DAILY Qty = 60 No Refills Copies To: Arben DIOR,Kiran Angeles; Linda DIOR,Philip Valiente Attending MD Review Statement Documenting Attending: Marcos Samson MD Other Findings: The patient was seen on the day of discharge and agree with plan of care. To see Dr. Mckeon 02/11 and he will arrange OP lung biopsy on 02/13- off ASA x 3 days. The patient will refrain from ASA until instructed by Dr. Mckeon to restart.
== END 2018-02-10 18:00 | DRG 663 ==
LOC: ERH 11:02 → 2NA 20:25 → ERHI 20:25 → ENRESERV 20:51 → ENTRNSPT 21:30 → EDTRNSPT 21:39 → EDTRNSPTSTS 21:39 → EDTRNSPT 21:48 → 2NA 21:49 → CMPTRNSPT 22:07 → 2NA 02-09 08:41 → ENPENDDIS 02-10 14:12 → 2NA 02-10 18:00
PROVIDERS: Internal Medicine; Internal Medicine Adolescent Medicine; Internal Medicine Hematology & Oncology; Physician Assistant Medical; Student in an Organized Health Care Education/Training Program
DX: R59.0 Localized enlarged lymph nodes (principal); R04.2 Hemoptysis; R74.0 Nonspecific elevation of levels of transaminase and lactic acid dehydrogenase [LDH]; G47.33 Obstructive sleep apnea (adult) (pediatric); E78.5 Hyperlipidemia, unspecified; I10 Essential (primary) hypertension; D64.9 Anemia, unspecified; Z22.322 Carrier or suspected carrier of Methicillin resistant Staphylococcus aureus
CPT/HCPCS: 2NASP; 86021; 86160; 86631; 86632; 36415; 36592; 71046; 81003; 82436; 82595; 86803; 87040; 87070; 87389; 87449; 87450; 93005; 93010; 93970; J0696; J1644; J2930; J3490; J7042